=== PATIENT | male | born 1960 | race Caucasian/White ===

== ENCOUNTER 2018-02-15 22:16 | Inpatient (IN) | payer OTHER ==
[2018-02-15] MEDS ORDERED: FUROSEMIDE 40 MG/4 ML INJECTABLE VIAL IVPUSH ONE (22:30)
[2018-02-15] MEDS ORDERED: NITROGLYCERIN 50MG/D5W 250ML 50 MG/250 ML ML IVPB SCH (22:30)
--- NOTE | 2018-02-15 22:30 | PDOC ---
Attending Attestation - Resident Resident Name: Sandy Medina - HPI HPI: 02/15/18 22:49 Pt presents to the ED complaining of the acute onset of shortness of breath. On arrival to the ED, patient was extremely diaphoretic, hypertensive and hypoxic. Improving on bipap. History of cardiac disease but no history of CHF. Also has history of COPD. - Physicial Exam PE: 02/15/18 22:52 Agree with resident exam. PAtient is in respiratory distress, speaking in one to two word sentences. Diaphoretic. + crackles bilaterally. Trace edema to mid calf. - Critical Care Time Total Critical Care Time: 30 Critical Care Statement: The care of this patient involved high complexity decision making to prevent further life threatening deterioration of the patient 's condition and/or to evaluate & treat vital organ system(s) failure or risk of failure. - Medical Decision Making 02/15/18 22:53 Pt presents to the ED in acute respiratory distress, with hypertension and tachycardia. CXR shows evidence of pulmonary edema. Will treat with bipap, IV lasix and nitroglycerin and admit to medicine for CHF exacerbation.
[2018-02-15] MEDS ORDERED: NITROGLYCERIN 25MG/D5W 250ML 25 MG/250 ML ML IVPB ONE (22:31)
[2018-02-15 22:32] LABS: BASO % 0.8 % (0-2.0); EOS % 0.5 % (0-4.5); HEMATOCRIT 48.8 % (35.4-49); HEMOGLOBIN 16.6 GM/dL (11.7-16.9); LYMPH % 26.4 % (8-40); MCH 31.3 pg (25.7-33.7); MEAN CELL VOLUME 92.3 fl (80-96); MEAN PLT VOLUME 8.4 fl (7.5-11.1); MONO % 9.9 % (3.8-10.2); NEUT % 62.4 % (42.8-82.8); PLATELET COUNT 263 K/MM3 (134-434); RBC 5.29 M/mm3 (4.00-5.60); RDW 14.5 % (11.9-15.9); WHITE BLOOD COUNT 17.3 K/mm3 (4.0-10.0)
[2018-02-15 22:36] LABS: VENOUS PC02 42.3 mmHg (38-52); VENOUS PO2 87.5 mmHg (28-48)
--- NOTE | 2018-02-15 22:37 | PDOC ---
History of Present Illness - General Chief Complaint: Shortness of Breath Stated Complaint: SHORTNESS OF BREATH Time Seen by Provider: 02/15/18 22:20 History Source: Patient Exam Limitations: No Limitations, Clinical Condition - History of Present Illness Initial Comments: 02/15/18 22:30 This is a 57 YOM with h/o NE with cardiac arrest now s/p cardiac stent, CAD, HTN , former smoker, and current diagnosis of bronchitis (on albuterol rescue inhaler) who p/w acute respiratory distress in the setting of worsening SOB and cough all day since he awakened this morning. The patient himself is unable to provide his own medical history or symptoms at this time as limited by his clinical condition. His family states he has never had SOB like this before in his life to their knowledge. It worsened when he walked from the parking lot to the waiting room. After his SOB is better controlled, the patient states that he has left lower medial chest discomfort on deep breathing (patient points). Past History - Past Medical History Allergies/Adverse Reactions: Allergies Allergy/AdvReac Type Severity Reaction Status Date / Time No Known Allergies Allergy Verified 05/21/13 22:10 Home Medications: Ambulatory Orders Folic Acid 1 mg PO DAILY 04/24/11 Nebivolol [Bystolic -] 20 mg PO DAILY 04/24/11 Thiamine HCl 100 mg PO DAILY 04/24/11 Albuterol 0.083% Nebulizer Veronica [Ventolin 0.083% Nebulizer Soln -] 1 neb NEB Q4H 04/05/13 Aspirin [ASA -] 81 mg PO DAILY 04/05/13 Atorvastatin Ca [Lipitor] 80 mg PO HS 04/05/13 Beclomethasone Dipropionate [Qvar ] 80 mcg IH BID 04/05/13 Clopidogrel Bisulfate [Plavix -] 10 mg PO DAILY 05/22/13 Cardiac Disorders: Yes (STENT) COPD: No HTN: Yes Hypercholesterolemia: Yes - Surgical History Cardiac Surgery: Yes (STENT) - Immunization History Immunization Up to Date: Yes - Suicide/Smoking/Psychosocial Hx Smoking Status: No Smoking History: Never smoked Have you smoked in the past 12 months: No Number of Cigarettes Smoked Daily: 0 If you are a former smoker, when did you quit?: years ago Information on smoking cessation initiated: No Hx Alcohol Use: Yes Drug/Substance Use Hx: No Substance Use Type: None Hx Substance Use Treatment: No Review of Systems - Review of Systems Able to Perform ROS?: No (clinical condition) *Physical Exam - Vital Signs Last Vital Signs Temp Pulse Resp BP Pulse Ox 137 H 32 H 177/122 H 88 L 02/15/18 22:18 02/15/18 22:18 02/15/18 22:18 02/15/18 22:18 02/15/18 23:03 GENERAL: moderate distress, moderate-severe respiratory distress, diaphoretic, unable to speak even one-word sentences, on 100% O2 via non-rebreather on my initial evaluation, family at bedside HEENT: PERRLA, EOMI, moist mucous membranes NECK/BACK: no midline ttp, no spinal stepoff or deformity, no hematoma, full ROM , neck supple CARDIOVASCULAR: regular rate/rhythm, tachycardic, normal S1S2, no MGR, strong peripheral pulses, capillary refill <2 seconds, extremities wwp, no edema LUNGS/RESPIRATORY: moderate-severe respiratory distress, bilateral very coarse breath sounds, coughing clear/yellow production frequently, tripoding, accessory muscle use, +retractions GI/ABDOMEN: protuberant, symmetric [id number], normoactive BS, soft, no ttp, no midline pulsatile masses : no CVA tenderness EXTREMITIES: no muscle atrophy, no acute deformity, no edema SKIN: extremities are lukewarm, dry, no pallor, no jaundice, no rash, no bruising, no skin breakdown, no cuts, no lesions NEUROLOGICAL: GCS 15, CN II-XII grossly intact, 5/5 strength proximally and distally, no facial droop Heart Score/ECG Review - History History: Moderately suspicious - Electrocardiogram EKG: Non specific repolarization disturbance - Age Age: 45-65 - Risk Factors Risk Factors Heart Score: Yes Hx Hypertension, Yes Smoking History, Yes Hx Obesity Based on the list above the patient has:: >/=3 risk factors or Hx atherosclerotic disease #1 02/15/18 22:31 Sinus tachycardia, rate 118, three PVCs, normal axis, grossly prolonged QT, narrow complex QRS, biatrial enlargement, no ischemic ST-T changes ED Treatment Course - LABORATORY CBC & Chemistry Diagram: 02/15/18 22:22 02/15/18 22:22 - RADIOLOGY Radiology Studies Ordered: Category Date Time Status CHEST X-RAY PORTABLE* [RAD] Stat Radiology 02/15/18 22:20 Ordered Medical Decision Making - Medical Decision Making 57 YOM with h/o recent bronchitis on rescue inhaler, who p/w SOB and cough all day today. Initial Vital Signs Pulse Resp BP Pulse Ox 137 H 32 H 177/122 H 88 L 02/15/18 22:18 02/15/18 22:18 02/15/18 22:18 02/15/18 22:18 Exam: As noted in Physical Exam section. DDX IBNLT: CHF exacerbation, pulmonary edema, COPD, asthma, other lung disease, PNA/bronchitis, anemia, ACS, pericarditis, tamponade, AD, PE, PTX, allergic reaction, malignancy (e.g. causing pericardial effusion or vascular shunt), other infection, pulmonary HTN, etc. W/U ordered: CBCD CMP Mg Phos Troponin CK CKMB BNP Blood Gas UA UCx EKG CXR TX ordered: NTG ggt, Lasix IV push, O2, BiPAP, Pt positioned with head of bed up Important to check Phos as severe hypophos can cause decr contractility and ventilation and rhabdo. 02/15/18 22:52 Patient coughed up fluid into his BiPAP mask, dirty now, RT coming to replace mask. At this time repeat BP 150s/90s, went up to 20 mcg/min on nitro drip. EKG: Reviewed; results as noted in ECG Review section. CXR: Pulmonary vascular congestion Laboratory Tests 02/15/18 02/15/18 02/15/18 22:14 22:22 22:22 WBC 17.3 H RBC 5.29 Hgb 16.6 Hct 48.8 D MCV 92.3 MCH 31.3 D MCHC 34.0 RDW 14.5 D Plt Count 263 MPV 8.4 Absolute Neuts (auto) 10.8 H Neutrophils % 62.4 Lymphocytes % 26.4 D Monocytes % 9.9 Eosinophils % 0.5 Basophils % 0.8 Nucleated RBC % 0 PT with INR INR VBG pH POC VBG pCO2 POC VBG pO2 Mixed VBG HCO3 Sodium 140 Potassium 3.8 Chloride 104 Carbon Dioxide 19 L Anion Gap 17 H BUN 13 Creatinine 1.6 H Creat Clearance w eGFR 44.46 Random Glucose 176 H Calcium 8.5 Phosphorus Magnesium Total Bilirubin 1.6 H AST 77 H ALT 82 H Alkaline Phosphatase 102 Creatine Kinase Creatine Kinase Index CK-MB (CK-2) Troponin I B-Natriuretic Peptide Total Protein 7.7 Albumin 4.0 Blood Type AB POSITIVE Antibody Screen Negative 02/15/18 02/15/18 02/15/18 22:22 22:22 22:24 WBC RBC Hgb Hct MCV MCH MCHC RDW Plt Count MPV Absolute Neuts (auto) Neutrophils % Lymphocytes % Monocytes % Eosinophils % Basophils % Nucleated RBC % PT with INR 12.90 INR 1.09 VBG pH POC VBG pCO2 POC VBG pO2 Mixed VBG HCO3 Sodium Potassium Chloride Carbon Dioxide Anion Gap BUN Creatinine Creat Clearance w eGFR Random Glucose Calcium Phosphorus 6.0 H Magnesium 2.0 Total Bilirubin AST ALT Alkaline Phosphatase Creatine Kinase 290 Creatine Kinase Index 1.3 CK-MB (CK-2) 3.9 H Troponin I 0.23 H B-Natriuretic Peptide 1336.3 H Total Protein Albumin Blood Type Antibody Screen 02/15/18 02/15/18 22:24 22:34 WBC RBC Hgb Hct MCV MCH MCHC RDW Plt Count MPV Absolute Neuts (auto) Neutrophils % Lymphocytes % Monocytes % Eosinophils % Basophils % Nucleated RBC % PT with INR INR VBG pH 7.23 L* POC VBG pCO2 42.3 POC VBG pO2 87.5 H Mixed VBG HCO3 17.1 L Sodium Potassium Chloride Carbon Dioxide Anion Gap BUN Creatinine Creat Clearance w eGFR Random Glucose Calcium Phosphorus Magnesium Total Bilirubin AST ALT Alkaline Phosphatase Creatine Kinase Creatine Kinase Index CK-MB (CK-2) Troponin I B-Natriuretic Peptide Total Protein Albumin Blood Type AB POSITIVE Antibody Screen Negative 02/15/18 23:27 Patient much more comfortable, on BiPAP, speaking 3 word sentences. BP 122/86 on 20 mcg/min NTG ggt, HR 106, RR 20, 100% on 40% FiO2. Vital Signs Temperature Pulse Rate 11 L 02/15/18 22:35 Respiratory Rate 32 H 02/15/18 22:18 Blood Pressure 177/122 H 02/15/18 22:18 O2 Sat by Pulse Oximetry (%) 99 02/15/18 22:41 02/15/18 23:07 The Pt is unsafe for discharge at this time. They require further hospital observation, workup, and treatment. Pt needs IV meds 2/2 likely bowel edema as PO medications likely less effective. Microblog sent to [facility] for admission. Blank Decision to Admit order is placed per ED protocol. 02/15/18 23:57 I spoke with admitting team, patient going to IP Tele, will wean off NTG ggt before he goes up. Decision to Admit order corrected with Dr. Lucas's name. *DC/Admit/Observation/Transfer Diagnosis at time of Disposition: DAPHNE (acute kidney injury), Hyperbilirubinemia Pulmonary edema Qualifiers: Chronicity: acute Qualified Code(s): J81.0 - Acute pulmonary edema - Discharge Dispostion Condition at time of disposition: Guarded Decision to Admit order: Yes - Referrals - Patient Instructions - Post Discharge Activity
[2018-02-15 22:38] LABS: VENOUS PH 7.23 (7.32-7.42)
[2018-02-15] MEDS ORDERED: FUROSEMIDE 40 MG/4 ML INJECTABLE VIAL ONE (22:42)
[2018-02-15 22:49] LABS: INR 1.09 (0.83-1.09); PROTHROMBIN TIME (PATIENT) 12.9 SEC (9.7-13.0)
[2018-02-15 22:50] LABS: ALK PHOS 102 U/L (45-117); ANION GAP 17 MMOL/L (8-16); BILIRUBIN,TOTAL 1.6 mg/dL (0.2-1); BLOOD UREA NITROGEN 13 mg/dL (7-18); CALCIUM 8.5 mg/dL (8.5-10.1); CHLORIDE 104 mmol/L (98-107); CO2 19 mmol/L (21-32); CREATININE 1.6 mg/dL (0.55-1.3); GLUCOSE,RANDOM 176 mg/dL (74-106); N-TERMINAL BNP 1336.3 pg/ml (5-125); POTASSIUM 3.8 mmol/L (3.5-5.1); SGOT/AST 77 U/L (15-37); SGPT/ALT 82 U/L (13-61); SODIUM 140 mmol/L (136-145); TOT PROT 7.7 g/dl (6.4-8.2)
[2018-02-15] MEDS ORDERED: ASPIRIN 81 MG CHEWABLE TABLETS PO ONE (23:30)
--- NOTE | 2018-02-16 00:02 | PN ---
Teaching Attending Note Name of Resident: Jose Young ATTENDING PHYSICIAN STATEMENT I saw and evaluated the patient. I reviewed the resident's note and discussed the case with the resident. I agree with the resident's findings and plan as documented. SUBJECTIVE: Patient is a 57 year old man with history of MS with cardiac arrest now s/p cardiac stent, CAD, HTN, former smoker, and current diagnosis of bronchitis (on albuterol rescue inhaler) who presents with acute respiratory distress in the setting of worsening SOB and cough all day since he awakened this morning. The patient himself is unable to provide his own medical history or symptoms at this time as limited by his clinical condition. His family states he has never had SOB like this before in his life to their knowledge. It worsened when he walked from the parking lot to the waiting room. After his SOB is better controlled, the patient states that he has left lower medial chest discomfort on deep breathing. Has history of heavy smoking in the past, DELUCA, PND, snores a lot, orthopnea and symptoms of sleep apnea OBJECTIVE: Alert, obese and in distress on Bipap Vital Signs Period Temp Pulse Resp BP Sys/Shaw Pulse Ox Last 24 Hr 11-137 32 177/122 88-100 HEENT: No Jaundice, eye redness or discharge, PERRLA, EOMI. Normocephalic, atraumatic. External ears are normal and hearing is grossly intact. No nasal discharge. Neck: Supple, nontender. No palpable adenopathy or thyromegaly. No JVD Chest: Good effort. Clear to percussion. End expiratory wheezing. Heart: Regular. No S3, rub or murmur Abdomen: Not distended, soft, nontender and no HSM. No rebound or guarding. Normoactive bowel sounds. Ext: Peripheral pulses intact. Trace leg edema. Skin: Warm and dry. No petechiae, rash or ecchymosis. Neuro: Alert. Oriented x3. CN 2-12 grossly intact. Sensation grossly intact in all four extremities and DTR are symmetric. Current Medications Generic Name Dose Route Start Last Admin Trade Name Freq PRN Reason Stop Dose Admin Nitroglycerin/Dextrose 50 mg in 250 mls @ 3 mls/hr 02/15/18 22:30 02/15/18 22 :38 Nitroglycerin 50mg/D5w 250ml IVPB 10 mcg/min TITR NHI 3 mls/hr Administration 10 MCG/MIN Home Medications Medication Instructions Recorded Folic Acid 1 mg PO DAILY 04/24/11 Nebivolol [Bystolic -] 20 mg PO DAILY 04/24/11 Thiamine HCl 100 mg PO DAILY 04/24/11 Albuterol 0.083% Nebulizer Veronica 1 neb NEB Q4H 04/05/13 [Ventolin 0.083% Nebulizer Soln -] Aspirin [ASA -] 81 mg PO DAILY 04/05/13 Atorvastatin Ca [Lipitor] 80 mg PO HS 04/05/13 Beclomethasone Dipropionate [Qvar 80 mcg IH BID 04/05/13] Clopidogrel Bisulfate [Plavix -] 10 mg PO DAILY 05/22/13 Abnormal Lab Results 02/15/18 02/15/18 02/15/18 22:22 22:22 22:22 WBC 17.3 H Absolute Neuts (auto) 10.8 H VBG pH POC VBG pO2 Mixed VBG HCO3 Carbon Dioxide 19 L Anion Gap 17 H Creatinine 1.6 H Random Glucose 176 H Phosphorus 6.0 H Total Bilirubin 1.6 H AST 77 H ALT 82 H CK-MB (CK-2) Troponin I B-Natriuretic Peptide 1336.3 H 02/15/18 02/15/18 22:22 22:24 WBC Absolute Neuts (auto) VBG pH 7.23 L* POC VBG pO2 87.5 H Mixed VBG HCO3 17.1 L Carbon Dioxide Anion Gap Creatinine Random Glucose Phosphorus Total Bilirubin AST ALT CK-MB (CK-2) 3.9 H Troponin I 0.23 H B-Natriuretic Peptide ASSESSMENT AND PLAN: 1. Acute Respiratory Failure - Underlying cause is still unclear. Unable to get CTA to rule out PE due to impaired renal function. CXR shows cardiomegaly, increased interstitial markings and reduced LV function on ECHO from 04/25/2011. Failed to diurese with 40 mg of IV lasix and UA is not available. Hypertension has improved with IV nitroglycerin. Will give 80 mg IV lasix, monitor urine output, reduce salt intake, get ECHO and monitor weight daily. With stong history of bronchitis, will treat with solumedrol, duoneb and MgSO4. Will check d-dimer and get VQ scan. If his clinical course worsens, may treat empirically for PE pending confirmation. Elevated LFTs may be due to congestion or alcohol. Will get liver sonogram, hepatitis serology, HbA1c and trend LFTs. Outpatient sleep studies. Elevated troponin may signal demand ischemia. No acute changes of ischemia on EKG. Trend troponin and admit to telemetry to rule out ACS. Leukocytosis is unexplained. Atypical pneumonia? Send urine for legionella antigen and treat with IV rocephin and azithromycin. Consult ID 2. DAPHNE - Etiology unclear. Get UA, kidney sonogram and CPK. Will consult nephrology and avoid nephrotoxic agents such as NSAIDS, aminoglycosides, contrast dyes and certain Alternative medicine products. Treat with phosphate binder 3. Obesity - Will provide patient all the necessary assistance , counseling and positive reinforcement to facilitate weight loss. Consult utility manager. 4. Alcohol abuse - Implement [facility] alcohol withdrawal protocol, fall and aspiration precautions. Treat with thiamine and folic acid and monitor electrolytes (Ca,Mg,K,P). 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 5. DVT prophylaxis - Lovenox 40 mg SQ q 24 hours. 6. Advance directives - Full code
[2018-02-16] MEDS ORDERED: ASPIRIN 81 MG CHEWABLE TABLETS ONE (00:03)
[2018-02-16] MEDS ORDERED: FUROSEMIDE 40 MG/4 ML INJECTABLE VIAL IVPUSH ONE (00:41)
[2018-02-16] MEDS ORDERED: methylPREDNISolone NA SUCC 125 MG/2 ML VIAL IVPUSH ONE (00:52)
[2018-02-16 01:20] LABS: ARTERIAL BLOOD GAS pH 7.53 (7.35-7.45)
[2018-02-16 01:21] LABS: ARTERIAL BLOOD GAS PCO2 26.4 mmHg (35-45)
[2018-02-16] MEDS ORDERED: methylPREDNISolone NA SUCC 125 MG/2 ML VIAL ONE (01:21)
[2018-02-16 01:22] LABS: ARTERIAL BLD GAS O2 SATURATION 98.9 % (90-98.9); ARTERIAL BLOOD GAS BASE EXCESS 1.1 meq/l (-2-2)
[2018-02-16] MEDS ORDERED: FUROSEMIDE 40 MG/4 ML INJECTABLE VIAL ONE (01:22)
[2018-02-16 01:23] LABS: ALLENS TEST POSITIVE
[2018-02-16 01:41] LABS: VENOUS PC02 30.4 mmHg (38-52); VENOUS PH 7.49 (7.32-7.42)
[2018-02-16] MEDS ORDERED: MAGNESIUM SULF 50% (8.12 MEQ/2 ML-1 GM VIAL) IVPB ONE (01:45)
--- NOTE | 2018-02-16 01:45 | HP ---
CHIEF COMPLAINT: SOB, cough, DELUCA PCP: Isela HISTORY OF PRESENT ILLNESS: 57 yo male with PMH of [place] (cardiac arrest in 2011) s/p stent insertion, CAD, HTN , HLD, admitted for acute respiratory distress that began today in addition to complaint of productive cough for a few months. He states that the cough has been present for at least 6 months and is productive of a lot of mostly clear sputum. 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 He states he is unable to lie flat at night and often awakens searching for air. He does state that he follows up with his cyber legal advisor and has had an echo that was normal in the past. Of note he is also endorsing medial to left sided sharp pain just above his xiphoid region which is much worse with deep inspiration. He denies any fevers, chills, abdominal pain, urinary symptoms. ER course was notable for: (1) b.p. 177/122, nitro drip initiated with good effect (2) bilevel ventilation initiated, RR and saturation improved (3) Lasix 40 mg IV Recent Travel: None PAST MEDICAL HISTORY: [place] (cardiac arrest in 2011) s/p stent insertion, CAD, HTN, HLD PAST SURGICAL HISTORY: Cardiac stent insertion Social History: Smoking: used to smoke up to 2 ppd for many years, quit eleven years ago Alcohol: up to a 12 pack of beer 3-4 times per week. Drugs: Denies Family History: Allergies No Known Allergies Allergy (Verified 05/21/13 22:10) HOME MEDICATIONS: Home Medications Medication Instructions Recorded Folic Acid 1 mg PO DAILY 04/24/11 Nebivolol [Bystolic -] 20 mg PO DAILY 04/24/11 Thiamine HCl 100 mg PO DAILY 04/24/11 Albuterol 0.083% Nebulizer Veronica 1 neb NEB Q4H 04/05/13 [Ventolin 0.083% Nebulizer Soln -] Aspirin [ASA -] 81 mg PO DAILY 04/05/13 Atorvastatin Ca [Lipitor] 80 mg PO HS 04/05/13 Beclomethasone Dipropionate [Qvar 80 mcg IH BID 04/05/13 1040] Clopidogrel Bisulfate [Plavix -] 10 mg PO DAILY 05/22/13 REVIEW OF SYSTEMS CONSTITUTIONAL: diaphoresis Absent: fever, chills, , generalized weakness, malaise, loss of appetite, weight change HEENT: Absent: rhinorrhea, nasal congestion, throat pain, throat swelling, difficulty swallowing, mouth swelling, ear pain, eye pain, visual changes CARDIOVASCULAR: chest pain, peripheral edema Absent: , syncope, palpitations, irregular heart rate, lightheadedness RESPIRATORY: cough, shortness of breath, dyspnea with exertion, orthopnea Absent: , wheezing, stridor, hemoptysis GASTROINTESTINAL: nausea Absent: abdominal pain, abdominal distension, , vomiting, diarrhea, constipation , melena, hematochezia GENITOURINARY: Absent: dysuria, frequency, urgency, hesitancy, hematuria, flank pain, genital pain MUSCULOSKELETAL: Absent: myalgia, arthralgia, joint swelling, back pain, neck pain SKIN: Absent: rash, itching, pallor HEMATOLOGIC/IMMUNOLOGIC: Absent: easy bleeding, easy bruising, lymphadenopathy, frequent infections ENDOCRINE: Absent: unexplained weight gain, unexplained weight loss, heat intolerance, cold intolerance NEUROLOGIC: Absent: headache, focal weakness or paresthesias, dizziness, unsteady gait, seizure, mental status changes, bladder or bowel incontinence PSYCHIATRIC: Absent: anxiety, depression, suicidal or homicidal ideation, hallucinations. PHYSICAL EXAMINATION Vital Signs - 24 hr 02/15/18 02/15/18 02/15/18 22:18 22:35 22:41 Pulse Rate 137 H 11 L Pulse Rate [ Left Apical] Respiratory 32 H Rate Blood Pressure 177/122 H Blood Pressure [Left] O2 Sat by Pulse 88 L 100 99 Oximetry (%) 02/15/18 02/16/18 22:58 00:38 Pulse Rate 112 H Pulse Rate [ 112 H 102 H Left Apical] Respiratory 21 H 22 H Rate Blood Pressure Blood Pressure 153/95 136/93 [Left] O2 Sat by Pulse 100 Oximetry (%) GENERAL: A&O, mild acute respiratory distress HEAD: Normocephalic, atraumatic. EYES: PERRL, no scleral icterus EARS, NOSE, THROAT: oropharynx clear without exudates. Moist mucous membranes. NECK: supple without lymphadenopathy LUNGS: bilevel ventilation, faint crackles at the bases, mild expiratory wheezes noted left base HEART: Regular rate and rhythm, normal S1 and S2 without murmur ABDOMEN: Soft, nontender to palpation, normoactive bowel sounds MUSCULOSKELETAL: No bony deformities or tenderness. EXTREMITIES: 2+ pulses, warm, well-perfused. Trace distal LE edema. NEUROLOGICAL: Cranial nerves II-XII grossly intact. Normal speech. PSYCHIATRIC: Cooperative. Good eye contact. Appropriate mood and affect. SKIN: Warm, dry, no rashes or lesions noted Laboratory Results - last 24 hr 02/15/18 02/15/18 02/15/18 22:14 22:22 22:22 WBC 17.3 H RBC 5.29 Hgb 16.6 Hct 48.8 D MCV 92.3 MCH 31.3 D MCHC 34.0 RDW 14.5 D Plt Count 263 MPV 8.4 Absolute Neuts (auto) 10.8 H Neutrophils % 62.4 Lymphocytes % 26.4 D Monocytes % 9.9 Eosinophils % 0.5 Basophils % 0.8 Nucleated RBC % 0 PT with INR INR VBG pH POC VBG pCO2 POC VBG pO2 Mixed VBG HCO3 Sodium 140 Potassium 3.8 Chloride 104 Carbon Dioxide 19 L Anion Gap 17 H BUN 13 Creatinine 1.6 H Creat Clearance w eGFR 44.46 Random Glucose 176 H Calcium 8.5 Phosphorus Magnesium Total Bilirubin 1.6 H AST 77 H ALT 82 H Alkaline Phosphatase 102 Creatine Kinase Creatine Kinase Index CK-MB (CK-2) Troponin I B-Natriuretic Peptide Total Protein 7.7 Albumin 4.0 Blood Type AB POSITIVE Antibody Screen Negative 02/15/18 02/15/18 02/15/18 22:22 22:22 22:24 WBC RBC Hgb Hct MCV MCH MCHC RDW Plt Count MPV Absolute Neuts (auto) Neutrophils % Lymphocytes % Monocytes % Eosinophils % Basophils % Nucleated RBC % PT with INR 12.90 INR 1.09 VBG pH POC VBG pCO2 POC VBG pO2 Mixed VBG HCO3 Sodium Potassium Chloride Carbon Dioxide Anion Gap BUN Creatinine Creat Clearance w eGFR Random Glucose Calcium Phosphorus 6.0 H Magnesium 2.0 Total Bilirubin AST ALT Alkaline Phosphatase Creatine Kinase 290 Creatine Kinase Index 1.3 CK-MB (CK-2) 3.9 H Troponin I 0.23 H B-Natriuretic Peptide 1336.3 H Total Protein Albumin Blood Type Antibody Screen 02/15/18 02/15/18 22:24 22:34 WBC RBC Hgb Hct MCV MCH MCHC RDW Plt Count MPV Absolute Neuts (auto) Neutrophils % Lymphocytes % Monocytes % Eosinophils % Basophils % Nucleated RBC % PT with INR INR VBG pH 7.23 L* POC VBG pCO2 42.3 POC VBG pO2 87.5 H Mixed VBG HCO3 17.1 L Sodium Potassium Chloride Carbon Dioxide Anion Gap BUN Creatinine Creat Clearance w eGFR Random Glucose Calcium Phosphorus Magnesium Total Bilirubin AST ALT Alkaline Phosphatase Creatine Kinase Creatine Kinase Index CK-MB (CK-2) Troponin I B-Natriuretic Peptide Total Protein Albumin Blood Type AB POSITIVE Antibody Screen Negative ASSESSMENT/PLAN: 57 yo male with PMH of [place] (cardiac arrest in 2011) s/p stent insertion, CAD, HTN , HLD, admitted for acute respiratory distress that began today in addition to complaint of productive cough for a few months. Acute Hypoxic Respiratory Failure -Acute onset of severe SOB requiring presentation to the ED, pt states chronic DELUCA and productive cough but never this severe or persistent -Afebrile, WBC 17.3, consider atypical/aspiration pneumonia, vs PE with clinical picture of rapid onset and pleuritic inspiratory chest pain, vs CHF with fluid overload -With alcohol use, aspiration cannot yet be ruled out -Urine legionella pending -Consider Rocephin/Azithromycin -BNP noted 1336 -CXR noted with mild blunting of b/l angles with possible b/l effusions, though Auscultation and exam not consistent with severe fluid overload -Lasix 80 mg IV (pt will require higher dose lasix with decreased renal function ) -Is&Os, Daily weights -Telemetry -Echo -D-dimer pending, consider pulmonology consult for possible V/Q scan if not improving overnight or D-dimer elevation -Bilevel ventilation for now -DuoNebs Q4 IH -SoluMedrol 125 mg IV, followed by 60 mg IV Q6 -IV Mag -ABG pending -Cardiology consulted, will see pt in AM. -Pt on plavix at home, add full dose ASA -Troponin 0.23 noted, will repeat and trend as necessary HTN Urgency -177/122 -No complaints or signs of end organ damage -Nitro drip initiated in ED. B.p improved to 136/93 -d/c Nitro drip -Continue home meds if b.p. stable in AM - DAPHNE vs. CKD -Likely CKD, Creatinine chronically elevated -UA pending Alcohol Abuse -Endorses 12 beers 3-4 times per week -Not currently appearing in acute withdrawals -Monitor CIWA and initiate librium/ativan protocol as needed DVT Prophylaxis -Heparin 5000 units SQ TID FEN -Fluids: none -Electrolytes: Phos, 6.0, repeat, BMP in AM -Nutrition: NPO Disposition Telemetry Visit type - Emergency Visit Emergency Visit: Yes Care time: The patient presented to the Emergency Department on the above date and was hospitalized for further evaluation of their emergent condition. - New Patient This patient is new to me today: Yes Date on this admission: 02/16/18 - Critical Care Critical Care patient: Yes Total Critical Care Time (in minutes): 65 Critical Care Statement: The care of this patient involved high complexity decision making to prevent further life threatening deterioration of the patient 's condition and/or to evaluate & treat vital organ system(s) failure or risk of failure.
[2018-02-16] MEDS ORDERED: MAGNESIUM 1GM/D5W - 1 GM/100 ML IVPB IVPB ONE (02:19)
[2018-02-16] MEDS ORDERED: METOPROLOL TARTRATE 5 MG/5 ML VIAL IVPUSH ONE (05:17)
[2018-02-16] MEDS ORDERED: CEFTRIAXONE 1 GM in DEXTROSE 5%-WATER - 50 ML IVPB ONE (05:30)
[2018-02-16 05:57] VITALS: BMI 35.0
[2018-02-16] MEDS ORDERED: HEPARIN NA (PORCINE) 5,000 UNITS/ML 1ML VIAL SQ SCH (06:00)
[2018-02-16] MEDS ORDERED: cefTRIAXone SODIUM 1 GM VIAL ONE (06:03)
[2018-02-16] MEDS ORDERED: DEXTROSE 5%-WATER - 50 ML IVPB ONE (06:04)
[2018-02-16] MEDS ORDERED: HEPARIN NA (PORCINE) 5,000 UNITS/ML 1ML VIAL IVPUSH PRN ×2 (08:35)
--- NOTE | 2018-02-16 08:47 | CON.CARD ---
Cardiology Consult (text) - Consultation Consultation Note: Consult Dictated IMP: Acute on chronic Diastolic CHF CAD s/p inferior [place] 2011, PCI Chronic uncontrolled HTN Hypertensive urgency Now with acute on chronic diastolic CHF possibly precipitated by uncontrolled HTN, but arrhythmia and ischemia need to be ruled out. REC: 1. IV Lasix 2. Hold SOFI due to elevated creatinine: start Imdur and Hydralazine for afterload reduction and BP control 3. Daily weights 4. Echo 5. Tele 6. Will need ischemic eval when euvolemic 7. Elevated D dimer, nonspecific. Cannot perform CTA now as creatinine is elevated and volume overload. Will start UFH gtts LE venous duplex CTA or V/Q scan when possible.
--- NOTE | 2018-02-16 08:53 | PN ---
Physical Exam: SUBJECTIVE: Patient seen and examined. Pt. endorses improved breathing, chest pain and abdominal pain. Pt. states that at baseline can walk up 3 steps before feeling short of breath and can walk half a block on flat surface before feeling short of breath. Pt. endorses 2 pillow orthopnea. OBJECTIVE: Vital Signs Period Temp Pulse Resp BP Sys/Shaw Pulse Ox Last 24 Hr 98.4 F 11-137 20-32 136-177/93-122 88-100 GENERAL: The patient is awake, alert, and fully oriented, in mild respiratory distress. HEAD: Normal with no signs of trauma. EYES: Sclera anicteric, conjunctiva clear. No ptosis. ENT: Ears normal, nares patent, moist mucous membranes, JVD+. LUNGS: Breath sounds equal, clear to auscultation bilaterally, no wheezes, no crackles, no accessory muscle use. HEART: Tachycardic, regular rate and rhythm, S1, S2 without murmur ABDOMEN: Soft, nontender, nondistended, normoactive bowel sounds, no guarding, no rebound, no hepatosplenomegaly, no masses. EXTREMITIES: 2+ dorsal pedal pulses, warm, no calf tenderness, well-perfused, trace pitting edema b/l. NEUROLOGICAL: Cranial nerves II through XII grossly intact. Normal speech, gait not observed. PSYCH: Normal mood, normal affect. SKIN: Warm, dry, normal turgor Laboratory Results - last 24 hr 02/15/18 02/15/18 02/15/18 22:14 22:22 22:22 WBC 17.3 H RBC 5.29 Hgb 16.6 Hct 48.8 D MCV 92.3 MCH 31.3 D MCHC 34.0 RDW 14.5 D Plt Count 263 MPV 8.4 Absolute Neuts (auto) 10.8 H Neutrophils % 62.4 Lymphocytes % 26.4 D Monocytes % 9.9 Eosinophils % 0.5 Basophils % 0.8 Nucleated RBC % 0 PT with INR INR D-Dimer Anticoagulation Therapy Puncture Site ABG pH ABG pCO2 at Pt Temp ABG pO2 at Pt Temp ABG HCO3 ABG O2 Sat (Measured) ABG O2 Content ABG Base Excess Aleksey Test VBG pH POC VBG pCO2 POC VBG pO2 Mixed VBG HCO3 O2 Delivery Device Oxygen Flow Rate Vent Mode Vent Rate Mechanical Rate Pressure Support Vent Sodium 140 Potassium 3.8 Chloride 104 Carbon Dioxide 19 L Anion Gap 17 H BUN 13 Creatinine 1.6 H Creat Clearance w eGFR 44.46 Random Glucose 176 H Calcium 8.5 Phosphorus Magnesium Total Bilirubin 1.6 H AST 77 H ALT 82 H Alkaline Phosphatase 102 Creatine Kinase Creatine Kinase Index CK-MB (CK-2) Troponin I B-Natriuretic Peptide Total Protein 7.7 Albumin 4.0 Blood Type AB POSITIVE Antibody Screen Negative 02/15/18 02/15/18 02/15/18 22:22 22:22 22:24 WBC RBC Hgb Hct MCV MCH MCHC RDW Plt Count MPV Absolute Neuts (auto) Neutrophils % Lymphocytes % Monocytes % Eosinophils % Basophils % Nucleated RBC % PT with INR 12.90 INR 1.09 D-Dimer Anticoagulation Therapy Puncture Site ABG pH ABG pCO2 at Pt Temp ABG pO2 at Pt Temp ABG HCO3 ABG O2 Sat (Measured) ABG O2 Content ABG Base Excess Aleksey Test VBG pH POC VBG pCO2 POC VBG pO2 Mixed VBG HCO3 O2 Delivery Device Oxygen Flow Rate Vent Mode Vent Rate Mechanical Rate Pressure Support Vent Sodium Potassium Chloride Carbon Dioxide Anion Gap BUN Creatinine Creat Clearance w eGFR Random Glucose Calcium Phosphorus 6.0 H Magnesium 2.0 Total Bilirubin AST ALT Alkaline Phosphatase Creatine Kinase 290 Creatine Kinase Index 1.3 CK-MB (CK-2) 3.9 H Troponin I 0.23 H B-Natriuretic Peptide 1336.3 H Total Protein Albumin Blood Type Antibody Screen 02/15/18 02/15/18 02/16/18 22:24 22:34 00:46 WBC RBC Hgb Hct MCV MCH MCHC RDW Plt Count MPV Absolute Neuts (auto) Neutrophils % Lymphocytes % Monocytes % Eosinophils % Basophils % Nucleated RBC % PT with INR INR D-Dimer Anticoagulation Therapy No Result Required. Puncture Site Right radial ABG pH 7.53 H ABG pCO2 at Pt Temp 26.4 L D ABG pO2 at Pt Temp 145.0 H D ABG HCO3 22.1 ABG O2 Sat (Measured) 98.9 ABG O2 Content 20.3 ABG Base Excess 1.1 Aleksey Test Positive VBG pH 7.23 L* POC VBG pCO2 42.3 POC VBG pO2 87.5 H Mixed VBG HCO3 17.1 L O2 Delivery Device Bipap Oxygen Flow Rate 100 Vent Mode No Result Required. Vent Rate 12 Mechanical Rate No Result Required. Pressure Support Vent 14/6 Sodium Potassium Chloride Carbon Dioxide Anion Gap BUN Creatinine Creat Clearance w eGFR Random Glucose Calcium Phosphorus Magnesium Total Bilirubin AST ALT Alkaline Phosphatase Creatine Kinase Creatine Kinase Index CK-MB (CK-2) Troponin I B-Natriuretic Peptide Total Protein Albumin Blood Type AB POSITIVE Antibody Screen Negative 02/16/18 02/16/18 02/16/18 01:20 01:36 01:36 WBC RBC Hgb Hct MCV MCH MCHC RDW Plt Count MPV Absolute Neuts (auto) Neutrophils % Lymphocytes % Monocytes % Eosinophils % Basophils % Nucleated RBC % PT with INR INR D-Dimer 1760 H Anticoagulation Therapy Puncture Site ABG pH ABG pCO2 at Pt Temp ABG pO2 at Pt Temp ABG HCO3 ABG O2 Sat (Measured) ABG O2 Content ABG Base Excess Aleksey Test VBG pH 7.49 H D POC VBG pCO2 30.4 L D POC VBG pO2 115.0 H D Mixed VBG HCO3 22.8 O2 Delivery Device Oxygen Flow Rate Vent Mode Vent Rate Mechanical Rate Pressure Support Vent Sodium Potassium Chloride Carbon Dioxide Anion Gap BUN Creatinine Creat Clearance w eGFR Random Glucose Calcium Phosphorus Magnesium Total Bilirubin AST ALT Alkaline Phosphatase Creatine Kinase Creatine Kinase Index CK-MB (CK-2) Troponin I 0.46 H B-Natriuretic Peptide Total Protein Albumin Blood Type Antibody Screen 02/16/18 06:20 WBC RBC Hgb Hct MCV MCH MCHC RDW Plt Count MPV Absolute Neuts (auto) Neutrophils % Lymphocytes % Monocytes % Eosinophils % Basophils % Nucleated RBC % PT with INR INR D-Dimer Anticoagulation Therapy Puncture Site ABG pH ABG pCO2 at Pt Temp ABG pO2 at Pt Temp ABG HCO3 ABG O2 Sat (Measured) ABG O2 Content ABG Base Excess Aleksey Test VBG pH POC VBG pCO2 POC VBG pO2 Mixed VBG HCO3 O2 Delivery Device Oxygen Flow Rate Vent Mode Vent Rate Mechanical Rate Pressure Support Vent Sodium Potassium Chloride Carbon Dioxide Anion Gap BUN Creatinine Creat Clearance w eGFR Random Glucose Calcium Phosphorus Magnesium Total Bilirubin AST ALT Alkaline Phosphatase Creatine Kinase Creatine Kinase Index CK-MB (CK-2) Troponin I 0.41 H B-Natriuretic Peptide Total Protein Albumin Blood Type Antibody Screen Active Medications Current Medications Aspirin (Ecotrin -) 325 mg PO DAILY [facility] Last Admin: 02/16/18 09:41 Dose: 325 mg Atorvastatin Calcium (Lipitor -) 40 mg PO HS [facility] Clopidogrel Bisulfate (Plavix -) 75 mg PO DAILY [facility] Last Admin: 02/16/18 09:41 Dose: 75 mg Furosemide (Lasix Injection -) 40 mg IVPUSH BID@0600,1400 [facility] Heparin Sodium (Porcine) (Heparin -) 1,000 unit IVPUSH PRN PRN PRN Reason: Heparin Heparin Sodium (Porcine) (Heparin -) 5,000 unit IVPUSH PRN PRN PRN Reason: Heparin Hydralazine HCl (Apresoline -) 10 mg PO TID [facility] Last Admin: 02/16/18 13:04 Dose: 10 mg Heparin Sodium (Porcine) 25, (000 unit/ Sodium Chloride) 500 mls @ 20 mls/hr IV TITR [facility]; Protocol Last Admin: 02/16/18 13:05 Dose: 1,000 unit/hr, 20 mls/hr Isosorbide Mononitrate (Imdur -) 30 mg PO DAILY [facility] Last Admin: 02/16/18 09:41 Dose: 30 mg Methylprednisolone Sodium Succinate (Solu-Medrol -) 60 mg IVPUSH Q8H-IV [facility] Last Admin: 02/16/18 09:49 Dose: 60 mg Metoprolol Tartrate (Lopressor -) 50 mg PO DAILY [facility] Last Admin: 02/16/18 09:41 Dose: 50 mg Pantoprazole Sodium (Protonix -) 40 mg PO DAILY [facility] Last Admin: 02/16/18 09:41 Dose: 40 mg Home Medications Medication Instructions Recorded Amlodipine Besylate 10 mg PO DAILY 02/16/18 Atorvastatin Ca [Lipitor] 40 mg PO HS 02/16/18 Clopidogrel Bisulfate [Clopidogrel] 75 mg PO DAILY 02/16/18 Fluticasone Propionate [Flonase 50 mcg IH DAILY 02/16/18 Allergy Relief] Metoprolol Tartrate [Lopressor] 50 mg PO BID 02/16/18 Omeprazole 40 mg PO DAILY 02/16/18 ASSESSMENT/PLAN: 57 yo male with PMH of [place] (cardiac arrest in 2011) s/p stent insertion, CAD, HTN , HLD, admitted for acute respiratory distress that began today in addition to complaint of productive cough for a few months. Acute Hypoxic Respiratory Failure 2/2 CHF w/ volume overload Acute onset of severe SOB requiring presentation to the ED, pt states chronic DELUCA and productive cough but never this severe or persistent Urine legionella pending D/C Azithromycin given prolonged QTc: 538 BNP noted 1336 CXR noted with mild blunting of b/l angles with possible b/l effusions Decreased Lasix to 40 mg IV BID Is&Os, Daily weights Telemetry Echo: shows EFL 30-35%, LV Fxn. mod-severe reduced. D-dimer: 1700 c/w supplemental O2 as needed, Bipap on standby currently, wouls benefit from night time use as Pt. complains of snoring at night and gasping for air while sleeping. DuoNebs Q4 IH Given SoluMedrol 125 mg IV, c/w by 60 mg IV Q8H Cardiology consult (Dr. Phillips) appreciated. Pt. on Plavix at home, c/w full dose ASA Troponin peaked at 0.46 HTN Urgency-resolved Hold SOFI in light of DAPHNE, will start Imdur and Hydralazine No complaints or signs of end organ damage Nitro drip initiated in ED. BP improved to 136/93 d/c Nitro drip Initial BP: 177/122 DAPHNE vs. CKD Likely CKD, Creatinine chronically elevated 2/2 to volume overload c/w diuresing avoid Nephrotoxic agents Alcohol Abuse-stable CIWA: 0 Endorses 12 beers 3-4 times per week Not currently appearing in acute withdrawals Monitor CIWA and initiate librium/ativan protocol as needed DVT Prophylaxis -Heparin 5000 units SQ TID FEN -Fluids: none -Electrolytes: monitor and replete as needed -Nutrition: Sodium restricted diet Disposition Telemetry Visit type - Emergency Visit Emergency Visit: Yes ED Registration Date: 02/15/18 Care time: The patient presented to the Emergency Department on the above date and was hospitalized for further evaluation of their emergent condition. - New Patient This patient is new to me today: Yes Date on this admission: 02/16/18 - Critical Care Critical Care patient: No - Discharge Referral Referred to [facility] Med [facility] No
[2018-02-16] MEDS: PANTOPRAZOLE 40 MG TABLET (FP) PO SCH (09:41)
[2018-02-16] MEDS: CLOPIDOGREL BISULFATE 75 MG TABLET (FP) PO SCH (09:41)
[2018-02-16] MEDS: ISOSORBIDE MONONITRATE 30 MG TAB.SR.24H (FP) PO SCH (09:41)
[2018-02-16] MEDS: methylPREDNISolone NA SUCC 125 MG/2 ML VIAL IVPUSH SCH ×2 (09:49→17:48)
[2018-02-16] MEDS ORDERED: FUROSEMIDE 40 MG/4 ML INJECTABLE VIAL IVPUSH SCH (10:00)
[2018-02-16] MEDS ORDERED: AZITHROMYCIN IVPB 500 MG/250 ML BAG IVPB SCH (10:00)
[2018-02-16] MEDS ORDERED: METOPROLOL TARTRATE 50 MG TABLET (FP) PO SCH (10:00)
[2018-02-16] MEDS ORDERED: methylPREDNISolone NA SUCC 125 MG/2 ML VIAL IVPUSH SCH (10:00)
[2018-02-16] MEDS ORDERED: ASPIRIN 325 MG ENTERIC COATED TABLET (FP) PO SCH (10:00)
--- NOTE | 2018-02-16 10:54 | EKG ---
Test Reason : Blood Pressure : / mmHG Vent. Rate : 092 BPM Atrial Rate : 092 BPM P-R Int : 168 ms QRS Dur : 102 ms QT Int : 374 ms P-R-T Axes : 052 049 064 degrees QTc Int : 462 ms SINUS RHYTHM WITH OCCASIONAL PREMATURE VENTRICULAR COMPLEXES POSSIBLE LEFT ATRIAL ENLARGEMENT NONSPECIFIC ST AND T WAVE ABNORMALITY ABNORMAL ECG WHEN COMPARED WITH ECG OF 15-FEB-2018 22:31, VENT. RATE HAS DECREASED Confirmed by IVONNE SHEPPARD, CASIE ([id number]) on 02/16/2018 10:53:56 AM Referred By: Confirmed By:CASIE CORONADO MD
--- NOTE | 2018-02-16 10:55 | CONS ---
DATE OF CONSULTATION: 02/16/2018 CARDIOLOGY CONSULTATION REQUESTED BY: Keya Medina MD REASON FOR CONSULTATION: CHF. Patient is a 57-year-old male with a past medical history of chronic hypertension, coronary artery disease status post inferior [place] in 2011 with PCI who presents to the ER with approximately 2 weeks of progressive dyspnea on exertion, PND, and orthopnea symptoms. He has also had a dry cough which has been largely nonproductive. He denies fevers or chills. Yesterday he also had an episode of substernal chest pressure associated with shortness of breath prompting him to come to the ER. He denies palpations or syncope. He denies prolonged air travel or car travel. PAST MEDICAL HISTORY: His past medical history includes hypertension, coronary artery disease, hyperlipidemia, and diastolic CHF. He had an GA in 2011 with PCI. ALLERGIES: He has no known drug allergies. CURRENT MEDICATIONS: His current medications include aspirin 325 p.o. daily, atorvastatin 40 mg p.o. daily, Zithromax 500 mg IV daily, clopidogrel 75 mg p.o. daily, furosemide 80 mg IV daily, subcutaneous heparin which has now been discontinued and converted to an IV heparin drip, hydralazine 10 mg p.o. t.i.d., Imdur 30 mg p.o. daily, Solu-Medrol 60 mg IV q.8 hours, metoprolol tartrate 50 mg p.o. daily, Protonix 40 mg p.o. daily. FAMILY HISTORY: Noncontributory. SOCIAL HISTORY: Former smoker. Patient does drink alcohol occasionally heavily and states that he drank heavily 2 days ago. PHYSICAL EXAMINATION: Vital Signs: Temperature 98.4, pulse 100 sinus tachycardia, blood pressure on admission 177/122, currently 158/110, O2 saturation 93% on room air, there is elevation of the jugular venous pressure. Heart: Regular, slightly tachycardic with an S4 gallop. Chest: Decreased breath sounds bilaterally. Abdomen: Soft, nontender. Extremities: Trace edema bilaterally which appears symmetric. ECG: Shows sinus rhythm at 118 beats per minute with left atrial enlargement, nonspecific ST changes, and a premature ventricular contraction. LABORATORIES: White count 17.3, hematocrit 48.8, platelets 263. INR 1.09. D-dimer 1760. pH 7.5, PCO2 of 26, PO2 of 145, sodium 140, potassium 3.8. BUN 13, creatinine 1.6. Magnesium 2.0. AST 77, ALT 82. Troponin 0.23, 0.46, 0.41. BNP is 1336. CHEST X-RAY: Showed increased vascular congestion bilaterally. IMPRESSION: 1. Acute on chronic diastolic congestive heart failure. 2. Coronary artery disease status post inferior myocardial infarction in 2011 with prior percutaneous coronary intervention. 3. Chronic uncontrolled hypertension. 4. Hypertensive urgency. Now with acute on chronic diastolic CHF possibly precipitated by uncontrolled hypertension but arrhythmia and ischemia need to be ruled out. RECOMMENDATION: 1. IV Lasix. 2. Hold SOFI inhibitor due to elevated creatinine: Will start Imdur and hydralazine combination for afterload reduction and BP control. 3. Daily weights. 4. Echocardiogram. 5. Continue telemetry to rule out arrhythmia. 6. Patient will need an ischemic evaluation when euvolemic. 7. The D-dimer is markedly elevated which is nonspecific. Cannot perform a CTA now as creatinine is elevated and volume overload is present. 8. Will start unfractionated heparin. 9. Check lower extremity duplex. 10. CTA when creatinine approves or V/Q scan when possible/chest x-ray improves to rule out pulmonary embolism. Thank you. Will follow. CARLITA CARRERA M.D. [id number]
--- NOTE | 2018-02-16 10:55 | EKG ---
Test Reason : Blood Pressure : / mmHG Vent. Rate : 118 BPM Atrial Rate : 118 BPM P-R Int : 164 ms QRS Dur : 096 ms QT Int : 324 ms P-R-T Axes : 052 042 038 degrees QTc Int : 454 ms SINUS TACHYCARDIA WITH OCCASIONAL PREMATURE VENTRICULAR COMPLEXES POSSIBLE LEFT ATRIAL ENLARGEMENT NONSPECIFIC ST AND T WAVE ABNORMALITY ABNORMAL ECG WHEN COMPARED WITH ECG OF 22-MAY-2013 09:47, VENT. RATE HAS INCREASED PREMATURE VENTRICULAR COMPLEXES Confirmed by IVONNE SHEPPARD, CASIE ([id number]) on 02/16/2018 10:55:21 AM Referred By: Confirmed By:CASIE CORONADO MD
--- NOTE | 2018-02-16 11:50 | ECHO ---
Name: JENNY SO Exam:Adult Echocardiogram Study Date: 02/16/2018 08:37 AM Age: 57 yrs Reason For Study: FLUID OVERLOAD VS PNA VS PE Height: 67 in Weight: 240 lb BSA: 2.2 m2 MMode/2D Measurements & Calculations IVSd: 0.85 cm Ao root diam: 3.3 cm LVIDd: 5.5 cm LA dimension: 4.4 cm LVIDs: 4.3 cm LVPWd: 0.87 cm EDV(Teich): 144.9 ml TAPSE: 2.9 cm ESV(Teich): 81.3 ml Doppler Measurements & Calculations MV E max martell: 71.6 cm/sec MR max martell: 439.2 cm/sec MV A max martell: 22.7 cm/sec MR max P.3 mmHg MV E/A: 3.2 MV dec time: 0.21 sec TR max martell: 294.5 cm/sec PA V2 max: 89.2 cm/sec TR max P.7 mmHg PA max P.2 mmHg PI end-d martell: 165.6 cm/sec Med Peak E' Martell: 5.9 cm/sec Med E/e': 12.0 Lat Peak E' Martell: 13.2 cm/sec Lat E/e': 5.4 Procedure A complete two-dimensional transthoracic echocardiogram was performed (2D, M-mode, Doppler and color flow Doppler). Left Ventricle The left ventricle is normal in size. Left ventricular systolic function is moderate to severely redu suzie. Ejection Fraction = 30-35%. There is moderate to severe global hypokinesis of the left ventricle. Right Ventricle The right ventricle is normal size. The right ventricular systolic function is normal. RV systolic TD I is 11 cm/s. Atria The left atrium is mildly dilated. Right atrial size is normal. Mitral Valve There is mild mitral annular calcification. There is trace to mild mitral regurgitation. Tricuspid Valve The tricuspid valve is normal in structure and function. Pulmonary artery systolic pressure is at justin st 39 mmHg assuming RA pressure of 3 mmHg. Aortic Valve The aortic valve is normal in structure and function. No aortic regurgitation is present. Pulmonic Valve The pulmonic valve is not well visualized. Mild pulmonic valvular regurgitation. Great Vessels The aortic root is normal size. Pericardium/Pleura There is no pericardial effusion. Interpretation Summary The left ventricle is normal in size. Left ventricular systolic function is moderate to severely reduced. There is moderate to severe global hypokinesis of the left ventricle. Ejection Fraction = 30-35%. The right ventricular systolic function is normal. The right ventricle is normal size. The left atrium is mildly dilated. Right atrial size is normal. There is mild mitral annular calcification. There is trace to mild mitral regurgitation. Pulmonary artery systolic pressure is at least 39 mmHg assuming RA pressure of 3 mmHg Mild pulmonic valvular regurgitation. There is no pericardial effusion. Previous study is not available for comparison Jun Mock MD 02/16/2018 11:49 AM
[2018-02-16] MEDS: hydrALAZINE HCL 10 MG TABLET PO SCH ×2 (13:04→20:59)
[2018-02-16] MEDS: HEPARIN - 25,000 UNIT in SODIUM CHLORIDE 495 ML IV SCH (13:05)
--- NOTE | 2018-02-16 13:28 | EKG ---
Test Reason : Blood Pressure : / mmHG Vent. Rate : 084 BPM Atrial Rate : 084 BPM P-R Int : 178 ms QRS Dur : 104 ms QT Int : 454 ms P-R-T Axes : 060 080 079 degrees QTc Int : 536 ms NORMAL SINUS RHYTHM POSSIBLE LEFT ATRIAL ENLARGEMENT NONSPECIFIC ST ABNORMALITY PROLONGED QT ABNORMAL ECG WHEN COMPARED WITH ECG OF 16-FEB-2018 01:33, PREMATURE VENTRICULAR COMPLEXES ARE NO LONGER PRESENT Confirmed by IVONNE SHEPPARD, CASIE ([id number]) on 02/16/2018 1:27:58 PM Referred By: Confirmed By:CASIE CORONADO MD
[2018-02-16] MEDS ORDERED: POTASSIUM CHLORIDE TABS 20 MEQ TABLET.ER (FP) PO ONE (14:15)
[2018-02-16 14:52] LABS: ANION GAP 10 MMOL/L (8-16); BLOOD UREA NITROGEN 22 mg/dL (7-18); CHLORIDE 102 mmol/L (98-107); CO2 27 mmol/L (21-32); CREATININE 1.5 mg/dL (0.55-1.3); GLUCOSE,RANDOM 150 mg/dL (74-106); MAGNESIUM 2.2 mg/dL (1.8-2.4); PHOSPHOROUS 2.7 mg/dL (2.5-4.9); POTASSIUM 3.8 mmol/L (3.5-5.1); SODIUM 140 mmol/L (136-145)
--- NOTE | 2018-02-16 20:15 | PN ---
Teaching Attending Note Name of Resident: Gregory Jolly ATTENDING PHYSICIAN STATEMENT I saw and evaluated the patient. I reviewed the resident's note and discussed the case with the resident. I agree with the resident's findings and plan as documented. SUBJECTIVE: Patient is a 57yo male presented with severe shortness of breath. OBJECTIVE: Vital Signs Temperature 97.9 F 02/16/18 18:00 Pulse Rate 87 02/16/18 18:00 Respiratory Rate 18 02/16/18 18:00 Blood Pressure 137/87 02/16/18 18:00 O2 Sat by Pulse Oximetry (%) 100 02/16/18 09:00 GENERAL: The patient is awake, alert, and fully oriented, in mild respiratory distress. HEAD: Normal with no signs of trauma. EYES: Sclera anicteric, conjunctiva clear. ENT: Ears normal, moist mucous membranes, JVD+. LUNGS: Breath sounds equal, clear to auscultation bilaterally, no wheezes, no crackles, no accessory muscle use. HEART: RRR, S1S2 positive ABDOMEN: Soft, NT,ND, normoactive bowel sounds, no guarding, no rebound, no hepatosplenomegaly, no masses. EXTREMITIES: 2+ dorsal pedal pulses, warm, no calf tenderness, well-perfused, trace pitting edema b/l. NEUROLOGICAL: Cranial nerves II through XII grossly intact. Normal speech, gait not observed. PSYCH: Normal mood, normal affect. SKIN: Warm, dry, normal turgor CBCD WBC 17.3 K/mm3 (4.0-10.0) H 02/15/18 22:22 RBC 5.29 M/mm3 (4.00-5.60) 02/15/18 22:22 Hgb 16.6 GM/dL (11.7-16.9) 02/15/18 22:22 Hct 48.8 % (35.4-49) D 02/15/18 22:22 MCV 92.3 fl (80-96) 02/15/18 22:22 MCHC 34.0 g/dl (32.0-35.9) 02/15/18 22:22 RDW 14.5 % (11.9-15.9) D 02/15/18 22:22 Plt Count 263 K/MM3 (134-434) 02/15/18 22:22 MPV 8.4 fl (7.5-11.1) 02/15/18 22:22 CMP Sodium 140 mmol/L (136-145) 02/16/18 14:10 Potassium 3.8 mmol/L (3.5-5.1) 02/16/18 14:10 Chloride 102 mmol/L (98-107) 02/16/18 14:10 Carbon Dioxide 27 mmol/L (21-32) 02/16/18 14:10 Anion Gap 10 MMOL/L (8-16) 02/16/18 14:10 BUN 22 mg/dL (7-18) H 02/16/18 14:10 Creatinine 1.5 mg/dL (0.55-1.3) H 02/16/18 14:10 Creat Clearance w eGFR 47.90 (>60) 02/16/18 14:10 Random Glucose 150 mg/dL (74-106) H 02/16/18 14:10 Calcium 9.0 mg/dL (8.5-10.1) 02/16/18 14:10 Total Bilirubin 1.6 mg/dL (0.2-1) H 02/15/18 22:22 AST 77 U/L (15-37) H 02/15/18 22:22 ALT 82 U/L (13-61) H 02/15/18 22:22 Alkaline Phosphatase 102 U/L (45-117) 02/15/18 22:22 Total Protein 7.7 g/dl (6.4-8.2) 02/15/18 22:22 Albumin 4.0 g/dl (3.4-5.0) 02/15/18 22:22 CARDIAC ENZYMES Creatine Kinase 290 IU/L (26-308) 02/15/18 22:22 Troponin I 0.41 ng/ml (0.00-0.05) H 02/16/18 06:20 Current Medications Generic Name Dose Route Start Last Admin Trade Name Allyson PRN Reason Stop Dose Admin Aspirin 325 mg 02/16/18 10:00 02/16/18 09:41 Ecotrin - PO 325 mg DAILY [facility] Administration Atorvastatin Calcium 40 mg 02/16/18 22:00 Lipitor - PO HS [facility] Clopidogrel Bisulfate 75 mg 02/16/18 10:00 02/16/18 09:41 Plavix - PO 75 mg DAILY [facility] Administration Furosemide 40 mg 02/17/18 14:00 Lasix Injection - IVPUSH BID@0600,1400 [facility] Heparin Sodium (Porcine) 1,000 unit 02/16/18 08:35 Heparin - IVPUSH PRN PRN Heparin Heparin Sodium (Porcine) 5,000 unit 02/16/18 08:35 Heparin - IVPUSH PRN PRN Heparin Hydralazine HCl 10 mg 02/16/18 14:00 02/16/18 13:04 Apresoline - PO 10 mg TID [facility] Administration Heparin Sodium (Porcine) 25, 500 mls @ 20 mls/hr 02/16/18 08:45 02/16/18 13: 05 000 unit/ Sodium Chloride IV 1,000 unit/hr TITR [facility] 20 mls/hr Administration Protocol 1,000 UNIT/HR Isosorbide Mononitrate 30 mg 02/16/18 10:00 02/16/18 09:41 Imdur - PO 30 mg DAILY [facility] Administration Methylprednisolone Sodium Succinate 60 mg 02/16/18 10:00 02/16/18 17:48 Solu-Medrol - IVPUSH 60 mg Q8H-IV [facility] Administration Metoprolol Tartrate 50 mg 02/16/18 10:00 02/16/18 09:41 Lopressor - PO 50 mg DAILY [facility] Administration Pantoprazole Sodium 40 mg 02/16/18 10:00 02/16/18 09:41 Protonix - PO 40 mg DAILY [facility] Administration Home Medications Medication Instructions Recorded Amlodipine Besylate 10 mg PO DAILY 02/16/18 Atorvastatin Ca [Lipitor] 40 mg PO HS 02/16/18 Clopidogrel Bisulfate [Clopidogrel] 75 mg PO DAILY 02/16/18 Fluticasone Propionate [Flonase 50 mcg IH DAILY 02/16/18 Allergy Relief] Metoprolol Tartrate [Lopressor] 50 mg PO BID 02/16/18 Omeprazole 40 mg PO DAILY 02/16/18 Echo: shows EFL 30-35%, LV Fxn. mod-severe reduced. D-dimer: 1700 ASSESSMENT AND PLAN: Patient is a 57 yo male with PMH of [place] (cardiac arrest in 2011) s/p stent insertion, CAD, HTN, HLD, admitted for acute respiratory distress that began today in addition to complaint of productive cough for a few months. # Acute Hypoxic Respiratory Failure due to diastolic CHF exacerbation. # Acute over chronic systolic and Diastolic CHF on IV lasix , hold tyler due to elevated Creatinine 1.5 today , on Imdur , hydralazine continue ,wu weights, ischemic eval once euvolemic, on heparin drip , elevated d-dimer , cta when creatinine less than 1.4. le duplex ordered. # hx of CAD s/p inferior [place] 2011, PCI # HTN Urgency-resolved on hydralazine # DAPHNE vs. CKD hold tyler-I for now # Alcohol use stable DVT Prophylaxis -Heparin 5000 units SQ TID Disposition Telemetry
[2018-02-16] MEDS: ATORVASTATIN CA 40 MG TABLET (FP) PO SCH (20:59)
[2018-02-17] MEDS: methylPREDNISolone NA SUCC 125 MG/2 ML VIAL IVPUSH SCH ×2 (02:30→09:42)
[2018-02-17] MEDS: hydrALAZINE HCL 10 MG TABLET PO SCH ×3 (05:31→22:06)
[2018-02-17 06:50] LABS: BASO % 0.2 % (0-2.0); HEMOGLOBIN 14.4 GM/dL (11.7-16.9); LYMPH % 5.8 % (8-40); MCH 30.1 pg (25.7-33.7); MCHC 32.6 g/dl (32.0-35.9); MEAN CELL VOLUME 92.4 fl (80-96); MEAN PLT VOLUME 9.2 fl (7.5-11.1); MONO % 6.9 % (3.8-10.2); NEUT % 87.1 % (42.8-82.8); PLATELET COUNT 198 K/MM3 (134-434); RBC 4.77 M/mm3 (4.00-5.60); RDW 14.5 % (11.9-15.9); WHITE BLOOD COUNT 13.2 K/mm3 (4.0-10.0)
[2018-02-17 07:43] LABS: ALBUMIN 3.6 g/dl (3.4-5.0); ALK PHOS 75 U/L (45-117); ANION GAP 11 MMOL/L (8-16); BILIRUBIN,TOTAL 1.5 mg/dL (0.2-1); BLOOD UREA NITROGEN 32 mg/dL (7-18); CALCIUM 8.4 mg/dL (8.5-10.1); CHLORIDE 107 mmol/L (98-107); CO2 26 mmol/L (21-32); CREATININE 1.4 mg/dL (0.55-1.3); GLUCOSE,RANDOM 149 mg/dL (74-106); MAGNESIUM 2.4 mg/dL (1.8-2.4); PHOSPHOROUS 2.9 mg/dL (2.5-4.9); POTASSIUM 4.1 mmol/L (3.5-5.1); SGOT/AST 53 U/L (15-37); SGPT/ALT 55 U/L (13-61); SODIUM 144 mmol/L (136-145); TOT PROT 6.7 g/dl (6.4-8.2)
--- NOTE | 2018-02-17 08:40 | PN ---
Progress Note, Physician Chief Complaint: significant weight loss and diuresis. Clinically improved, less SOB now able to lay flat as opposed to yesterday TELE: NSR, Rare single PVCs History of Present Illness: Blood pressure remains slightly above target - Current Medication List Current Medications: Active Medications Aspirin (Ecotrin -) 325 mg PO DAILY [facility] Last Admin: 02/16/18 09:41 Dose: 325 mg Atorvastatin Calcium (Lipitor -) 40 mg PO HS [facility] Last Admin: 02/16/18 20:59 Dose: 40 mg Clopidogrel Bisulfate (Plavix -) 75 mg PO DAILY [facility] Last Admin: 02/16/18 09:41 Dose: 75 mg Furosemide (Lasix Injection -) 40 mg IVPUSH BID@0600,1400 [facility] Heparin Sodium (Porcine) (Heparin -) 1,000 unit IVPUSH PRN PRN PRN Reason: Heparin Heparin Sodium (Porcine) (Heparin -) 5,000 unit IVPUSH PRN PRN PRN Reason: Heparin Hydralazine HCl (Apresoline -) 10 mg PO TID [facility] Last Admin: 02/17/18 05:31 Dose: 10 mg Heparin Sodium (Porcine) 25, (000 unit/ Sodium Chloride) 500 mls @ 20 mls/hr IV TITR [facility]; Protocol Last Admin: 02/16/18 13:05 Dose: 1,000 unit/hr, 20 mls/hr Isosorbide Mononitrate (Imdur -) 30 mg PO DAILY [facility] Last Admin: 02/16/18 09:41 Dose: 30 mg Methylprednisolone Sodium Succinate (Solu-Medrol -) 60 mg IVPUSH Q8H-IV [facility] Last Admin: 02/17/18 02:30 Dose: 60 mg Metoprolol Tartrate (Lopressor -) 50 mg PO DAILY [facility] Last Admin: 02/16/18 09:41 Dose: 50 mg Pantoprazole Sodium (Protonix -) 40 mg PO DAILY [facility] Last Admin: 02/16/18 09:41 Dose: 40 mg - Objective Vital Signs: Vital Signs Temperature 97.1 F L 02/17/18 07:35 Pulse Rate 89 02/17/18 07:35 Respiratory Rate 20 02/17/18 07:35 Blood Pressure 156/108 H 02/17/18 07:35 O2 Sat by Pulse Oximetry (%) 97 02/16/18 21:00 Constitutional: Yes: No Distress Cardiovascular: Yes: Regular Rate and Rhythm, JVD Respiratory: Yes: CTA Bilaterally Gastrointestinal: Yes: Soft Edema: No Neurological: Yes: Alert, Oriented ...Motor Strength: WNL Labs: CBC, BMP 02/17/18 05:30 02/17/18 05:30 INR, PTT INR 1.09 (0.83-1.09) 02/15/18 22:24 Laboratory Tests 02/17/18 02/17/18 02/17/18 05:30 05:30 07:30 WBC 13.2 H Hgb 14.4 Plt Count 198 D PTT (Actin FS) 56.2 H Sodium 144 Potassium 4.1 BUN 32 H Creatinine 1.4 H Magnesium 2.4 - ....Imaging EKG: Image Reviewed Assessment/Plan IMP: Acute on chronic Systolic and Diastolic CHF, possibly precipitated by uncontrolled HTN CAD s/p inferior [place] 2011, PCI Elevated D- dimer Elevated TnI: likely due to CHF, CKD; cannot r/o NSTEMI Good clinical response to IV Lasix over first 24 hours with weight loss, increased urine output and clinical improvement REC: 1. IV Lasix BID for another 24-48 hours. Still with JVD. 2. Hold SOFI due to elevated creatinine: started on Imdur/Hydralazine; will titrate as BP still above goal 3. Daily weights 4. Echo w/moderate to severe reduced LV fxn: Cont Nitrate + Hydral and change Metop tartrae to Toprol XL 25mg daily 5. Tele 6. Elevated D dimer, nonspecific. CTA was held as creatinine elevated and volume overload. Continue UFH gtts for + TnI, possible NSTEMI LE venous duplex negative CTA or V/Q scan when possible. 7. Will need ischemic evaluation prior to d/c when euvolemic.
[2018-02-17] MEDS: HEPARIN - 25,000 UNIT in SODIUM CHLORIDE 495 ML IV SCH (09:41)
[2018-02-17] MEDS: ISOSORBIDE MONONITRATE 30 MG TAB.SR.24H (FP) PO SCH (09:42)
[2018-02-17] MEDS: CLOPIDOGREL BISULFATE 75 MG TABLET (FP) PO SCH (09:42)
[2018-02-17] MEDS: ASPIRIN 81 MG CHEWABLE TABLETS PO SCH (09:42)
[2018-02-17] MEDS: PANTOPRAZOLE 40 MG TABLET (FP) PO SCH (09:42)
[2018-02-17] MEDS: metoPROLOL SUCCINATE 25 MG TAB.SR.24H (FP) PO SCH (09:42)
--- NOTE | 2018-02-17 09:42 | PN ---
Teaching Attending Note Name of Resident: Gregory Jolly ATTENDING PHYSICIAN STATEMENT I saw and evaluated the patient. I reviewed the resident's note and discussed the case with the resident. I agree with the resident's findings and plan as documented. SUBJECTIVE: Patient is feeling better, but continues to have shortness of breath. OBJECTIVE: Vital Signs Temperature 98.2 F 02/17/18 09:29 Pulse Rate 89 02/17/18 09:29 Respiratory Rate 19 02/17/18 09:29 Blood Pressure 147/97 02/17/18 09:29 O2 Sat by Pulse Oximetry (%) 99 02/17/18 09:00 GENERAL: The patient is awake, alert, and fully oriented, in mild respiratory distress. HEAD: Normal with no signs of trauma. EYES: Sclera anicteric, conjunctiva clear. ENT: Ears normal, moist mucous membranes, JVD+.improving LUNGS: Breath sounds equal, clear to auscultation bilaterally, no wheezes, no crackles. HEART: regular rate and rhythm, S1, S2 positive , ABDOMEN: Soft, nontender, ND, NT, no guarding, no rebound, no hepatosplenomegaly, no masses. EXTREMITIES: 2+ dorsal pedal pulses, warm, no calf tenderness, well-perfused, trace pitting edema b/l. NEUROLOGICAL: Cranial nerves II through XII grossly intact. Normal speech, gait not observed. PSYCH: Normal mood, normal affect. SKIN: Warm, dry, normal turgor CBCD WBC 13.2 K/mm3 (4.0-10.0) H 02/17/18 05:30 RBC 4.77 M/mm3 (4.00-5.60) 02/17/18 05:30 Hgb 14.4 GM/dL (11.7-16.9) 02/17/18 05:30 Hct 44.0 % (35.4-49) 02/17/18 05:30 MCV 92.4 fl (80-96) 02/17/18 05:30 MCHC 32.6 g/dl (32.0-35.9) 02/17/18 05:30 RDW 14.5 % (11.9-15.9) 02/17/18 05:30 Plt Count 198 K/MM3 (134-434) D 02/17/18 05:30 MPV 9.2 fl (7.5-11.1) 02/17/18 05:30 CMP Sodium 144 mmol/L (136-145) 02/17/18 05:30 Potassium 4.1 mmol/L (3.5-5.1) 02/17/18 05:30 Chloride 107 mmol/L (98-107) 02/17/18 05:30 Carbon Dioxide 26 mmol/L (21-32) 02/17/18 05:30 Anion Gap 11 MMOL/L (8-16) 02/17/18 05:30 BUN 32 mg/dL (7-18) H 02/17/18 05:30 Creatinine 1.4 mg/dL (0.55-1.3) H 02/17/18 05:30 Creat Clearance w eGFR 51.87 (>60) 02/17/18 05:30 Random Glucose 149 mg/dL (74-106) H 02/17/18 05:30 Calcium 8.4 mg/dL (8.5-10.1) L 02/17/18 05:30 Total Bilirubin 1.5 mg/dL (0.2-1) H 02/17/18 05:30 AST 53 U/L (15-37) H 02/17/18 05:30 ALT 55 U/L (13-61) 02/17/18 05:30 Alkaline Phosphatase 75 U/L (45-117) 02/17/18 05:30 Total Protein 6.7 g/dl (6.4-8.2) 02/17/18 05:30 Albumin 3.6 g/dl (3.4-5.0) 02/17/18 05:30 CARDIAC ENZYMES Creatine Kinase 290 IU/L (26-308) 02/15/18 22:22 Troponin I 0.41 ng/ml (0.00-0.05) H 02/16/18 06:20 Current Medications Generic Name Dose Route Start Last Admin Trade Name Freq PRN Reason Stop Dose Admin Aspirin 81 mg 02/17/18 10:00 Asa - PO DAILY [facility] Atorvastatin Calcium 40 mg 02/16/18 22:00 02/16/18 20:59 Lipitor - PO 40 mg HS [facility] Administration Clopidogrel Bisulfate 75 mg 02/16/18 10:00 02/16/18 09:41 Plavix - PO 75 mg DAILY [facility] Administration Furosemide 40 mg 02/17/18 14:00 Lasix Injection - IVPUSH BID@0600,1400 [facility] Heparin Sodium (Porcine) 1,000 unit 02/16/18 08:35 Heparin - IVPUSH PRN PRN Heparin Heparin Sodium (Porcine) 5,000 unit 02/16/18 08:35 Heparin - IVPUSH PRN PRN Heparin Hydralazine HCl 20 mg 02/17/18 14:00 Apresoline - PO TID [facility] Heparin Sodium (Porcine) 25, 500 mls @ 20 mls/hr 02/16/18 08:45 02/16/18 13: 05 000 unit/ Sodium Chloride IV 1,000 unit/hr TITR [facility] 20 mls/hr Administration Protocol 1,000 UNIT/HR Isosorbide Mononitrate 30 mg 02/16/18 10:00 02/16/18 09:41 Imdur - PO 30 mg DAILY [facility] Administration Methylprednisolone Sodium Succinate 60 mg 02/16/18 10:00 02/17/18 02:30 Solu-Medrol - IVPUSH 60 mg Q8H-IV [facility] Administration Metoprolol Succinate 25 mg 02/17/18 10:00 Toprol Xl - PO DAILY [facility] Pantoprazole Sodium 40 mg 02/16/18 10:00 02/16/18 09:41 Protonix - PO 40 mg DAILY [facility] Administration Home Medications Medication Instructions Recorded Amlodipine Besylate 10 mg PO DAILY 02/16/18 Atorvastatin Ca [Lipitor] 40 mg PO HS 02/16/18 Clopidogrel Bisulfate [Clopidogrel] 75 mg PO DAILY 02/16/18 Fluticasone Propionate [Flonase 50 mcg IH DAILY 02/16/18 Allergy Relief] Metoprolol Tartrate [Lopressor] 50 mg PO BID 02/16/18 Omeprazole 40 mg PO DAILY 02/16/18 Echo: shows EFL 30-35%, LV Fxn. mod-severe reduced. D-dimer: 1700 ASSESSMENT AND PLAN: Patient is a 57 yo male with PMH of [place] (cardiac arrest in 2011) s/p stent insertion, CAD, HTN, HLD, admitted for acute respiratory distress that began today in addition to complaint of productive cough for a few months. # Acute Hypoxic Respiratory Failure due to diastolic CHF exacerbation. improving # Acute over chronic systolic and Diastolic CHF on IV lasix , hold tyler-I due to elevated Creatinine 1.5 today , on Imdur , hydralazine continue ,daily weights, ischemic eval once euvolemic, on heparin drip , elevated d-dimer , CTA when creatinine less than 1.4. le duplex ordered. # hx of CAD s/p inferior [place] 2011, PCI # HTN improving on hydralazine # DAPHNE vs. CKD hold tyler-I for now # Alcohol use stable DVT Prophylaxis -Heparin 5000 units SQ TID
--- NOTE | 2018-02-17 12:26 | EKG ---
Test Reason : Blood Pressure : / mmHG Vent. Rate : 092 BPM Atrial Rate : 092 BPM P-R Int : 164 ms QRS Dur : 100 ms QT Int : 396 ms P-R-T Axes : 043 015 089 degrees QTc Int : 489 ms SINUS RHYTHM WITH OCCASIONAL PREMATURE VENTRICULAR COMPLEXES POSSIBLE LEFT ATRIAL ENLARGEMENT INFERIOR INFARCT (CITED ON OR BEFORE 17-FEB-2018) PREMATURE VENTRICULAR COMPLEXES ABNORMAL ECG Confirmed by MD USAMA, GEORGETTE ([id number]) on 02/17/2018 12:26:38 PM Referred By: SIA DEL REAL DR Confirmed By:GEORGETTE FORRESTER MD
[2018-02-17 12:32] LABS: URINE APPEARANCE SLCLOUDY; URINE BILIRUBIN NEGATIVE (<2.0 mg/dL); URINE COLOR YELLOW; URINE GLUCOSE (UA) NEGATIVE (NEGATIVE); URINE KETONE NEGATIVE (NEGATIVE); URINE LEUK ESTERASE NEGATIVE (NEGATIVE); URINE NITRITE NEGATIVE (NEGATIVE); URINE PROTEIN NEGATIVE (NEGATIVE); URINE UROBILINOGEN NEGATIVE mg/dL (0.2-1.0)
--- NOTE | 2018-02-17 12:49 | PN ---
Physical Exam: SUBJECTIVE: Patient seen and examined. No acute events overnight. Pt. states that he feels much better. OBJECTIVE: Vital Signs Period Temp Pulse Resp BP Sys/Shaw Pulse Ox Last 24 Hr 97.1 F-98.6 F 76-95 18-20 137-156/74-108 96-100 GENERAL: The patient is awake, alert, and fully oriented, in mild respiratory distress. HEAD: Normal with no signs of trauma. EYES: Sclera anicteric, conjunctiva clear. No ptosis. ENT: Ears normal, nares patent, moist mucous membranes, JVD+. LUNGS: Breath sounds equal, clear to auscultation bilaterally, no wheezes, no crackles, no accessory muscle use. HEART: Tachycardic, regular rate and rhythm, S1, S2 without murmur ABDOMEN: Soft, nontender, nondistended, normoactive bowel sounds, no guarding, no rebound, no hepatosplenomegaly, no masses. EXTREMITIES: 2+ dorsal pedal pulses, warm, no calf tenderness, well-perfused, trace pitting edema b/l. NEUROLOGICAL: Cranial nerves II through XII grossly intact. Normal speech, gait not observed. PSYCH: Normal mood, normal affect. SKIN: Warm, dry, normal turgor Laboratory Results - last 24 hr 02/16/18 02/17/18 02/17/18 14:10 05:30 05:30 WBC 13.2 H RBC 4.77 Hgb 14.4 Hct 44.0 MCV 92.4 MCH 30.1 MCHC 32.6 RDW 14.5 Plt Count 198 D MPV 9.2 Absolute Neuts (auto) 11.5 H Neutrophils % 87.1 H D Lymphocytes % 5.8 L D Monocytes % 6.9 Eosinophils % 0.0 D Basophils % 0.2 Nucleated RBC % 0 PTT (Actin FS) Sodium 140 144 Potassium 3.8 4.1 Chloride 102 107 Carbon Dioxide 27 26 Anion Gap 10 11 BUN 22 H 32 H Creatinine 1.5 H 1.4 H Creat Clearance w eGFR 47.90 51.87 Random Glucose 150 H 149 H Calcium 9.0 8.4 L Phosphorus 2.7 2.9 Magnesium 2.2 2.4 Total Bilirubin 1.5 H AST 53 H ALT 55 Alkaline Phosphatase 75 Total Protein 6.7 Albumin 3.6 Urine Color Urine Appearance Urine pH Ur Specific Timber Urine Protein Urine Glucose (UA) Urine Ketones Urine Blood Urine Nitrite Urine Bilirubin Urine Urobilinogen Ur Leukocyte Esterase Stool Occult Blood 02/17/18 02/17/18 02/17/18 07:30 11:10 11:50 WBC RBC Hgb Hct MCV MCH MCHC RDW Plt Count MPV Absolute Neuts (auto) Neutrophils % Lymphocytes % Monocytes % Eosinophils % Basophils % Nucleated RBC % PTT (Actin FS) 56.2 H Sodium Potassium Chloride Carbon Dioxide Anion Gap BUN Creatinine Creat Clearance w eGFR Random Glucose Calcium Phosphorus Magnesium Total Bilirubin AST ALT Alkaline Phosphatase Total Protein Albumin Urine Color Yellow Urine Appearance Slcloudy Urine pH 5.0 Ur Specific Timber 1.026 Urine Protein Negative Urine Glucose (UA) Negative Urine Ketones Negative Urine Blood Negative Urine Nitrite Negative Urine Bilirubin Negative Urine Urobilinogen Negative Ur Leukocyte Esterase Negative Stool Occult Blood Negative Active Medications Current Medications Aspirin (Asa -) 81 mg PO DAILY [facility] Last Admin: 02/17/18 09:42 Dose: 81 mg Atorvastatin Calcium (Lipitor -) 40 mg PO HS [facility] Last Admin: 02/16/18 20:59 Dose: 40 mg Clopidogrel Bisulfate (Plavix -) 75 mg PO DAILY [facility] Last Admin: 02/17/18 09:42 Dose: 75 mg Furosemide (Lasix Injection -) 40 mg IVPUSH BID@0600,1400 [facility] Heparin Sodium (Porcine) (Heparin -) 1,000 unit IVPUSH PRN PRN PRN Reason: Heparin Heparin Sodium (Porcine) (Heparin -) 5,000 unit IVPUSH PRN PRN PRN Reason: Heparin Hydralazine HCl (Apresoline -) 20 mg PO TID [facility] Heparin Sodium (Porcine) 25, (000 unit/ Sodium Chloride) 500 mls @ 20 mls/hr IV TITR [facility]; Protocol Last Admin: 02/17/18 09:41 Dose: 1,000 unit/hr, 20 mls/hr Isosorbide Mononitrate (Imdur -) 30 mg PO DAILY [facility] Last Admin: 02/17/18 09:42 Dose: 30 mg Methylprednisolone Sodium Succinate (Solu-Medrol -) 40 mg IVPUSH DAILY [facility] Metoprolol Succinate (Toprol Xl -) 25 mg PO DAILY [facility] Last Admin: 02/17/18 09:42 Dose: 25 mg Pantoprazole Sodium (Protonix -) 40 mg PO DAILY [facility] Last Admin: 02/17/18 09:42 Dose: 40 mg Home Medications Medication Instructions Recorded Amlodipine Besylate 10 mg PO DAILY 02/16/18 Atorvastatin Ca [Lipitor] 40 mg PO HS 02/16/18 Clopidogrel Bisulfate [Clopidogrel] 75 mg PO DAILY 02/16/18 Fluticasone Propionate [Flonase 50 mcg IH DAILY 02/16/18 Allergy Relief] Metoprolol Tartrate [Lopressor] 50 mg PO BID 02/16/18 Omeprazole 40 mg PO DAILY 02/16/18 ASSESSMENT/PLAN: 57 yo male with PMH of [place] (cardiac arrest in 2011) s/p stent insertion, CAD, HTN , HLD, admitted for acute respiratory distress that began today in addition to complaint of productive cough for a few months. Acute Hypoxic Respiratory Failure 2/2 CHF w/ volume overload Acute onset of severe SOB requiring presentation to the ED, pt states chronic DELUCA and productive cough but never this severe or persistent Urine legionella pending D/C Azithromycin given prolonged QTc: 538 BNP noted 1336 CXR noted with mild blunting of b/l angles with possible b/l effusions Decreased Lasix to 40 mg IV BID Is&Os, Daily weights Telemetry Echo: shows EFL 30-35%, LV Fxn. mod-severe reduced. D-dimer: 1700 c/w supplemental O2 as needed, Bipap on standby currently, wouls benefit from night time use as Pt. complains of snoring at night and gasping for air while sleeping. DuoNebs Q4 IH Given SoluMedrol 125 mg IV, c/w by 60 mg IV Q8H Cardiology consult (Dr. Phillips) appreciated. Pt. on Plavix at home, c/w full dose ASA Troponin peaked at 0.46 HTN Urgency-resolved Hold SOFI in light of DAPHNE, will start Imdur and Hydralazine No complaints or signs of end organ damage Nitro drip initiated in ED. BP improved to 136/93 d/c Nitro drip Initial BP: 177/122 DAPHNE vs. CKD Likely CKD, Creatinine chronically elevated 2/2 to volume overload c/w diuresing avoid Nephrotoxic agents Alcohol Abuse-stable CIWA: 0 Endorses 12 beers 3-4 times per week Not currently appearing in acute withdrawals Monitor CIWA and initiate librium/ativan protocol as needed DVT Prophylaxis -Heparin 5000 units SQ TID FEN -Fluids: none -Electrolytes: monitor and replete as needed -Nutrition: Sodium restricted diet Disposition Telemetry Visit type - Emergency Visit Emergency Visit: Yes ED Registration Date: 02/15/18 Care time: The patient presented to the Emergency Department on the above date and was hospitalized for further evaluation of their emergent condition. - New Patient This patient is new to me today: No - Critical Care Critical Care patient: No - Discharge Referral Referred to [facility] Med P.C.: No
--- NOTE | 2018-02-17 13:05 | PN ---
Progress Note (short form) - Note Progress Note: PULMONARY IMP ACUTE HYPOXEMIC RESPIRATORY FAILURE ACUTE ON CHRONIC CHF HYPERTENSIVE URGENCY ASHD S/P GA + TROPONIN ELEVATED D-DIMER NON-SPECIFIC DAPHNE H/O BRONCHITIS LIKELY OSAS PLAN LASIX O2 MONITOR BP TITRATE BP MEDS HEPARIN TREND TROPONIN CTA WHEN RENAL FUNCTION NORMAL SLEEP SCREEN F/U CHEST X-RAYS MONITOR LYTES,RENAL FUNCTION Problem List - Problems (1) Acute hypoxemic respiratory failure Code(s): J96.01 - ACUTE RESPIRATORY FAILURE WITH HYPOXIA (2) DAPHNE (acute kidney injury) Code(s): N17.9 - ACUTE KIDNEY FAILURE, UNSPECIFIED (3) Pulmonary edema Code(s): J81.1 - CHRONIC PULMONARY EDEMA Qualifiers: Chronicity: acute Qualified Code(s): J81.0 - Acute pulmonary edema (4) Troponin I above reference range Code(s): R74.8 - ABNORMAL LEVELS OF OTHER SERUM ENZYMES (5) D-dimer, elevated Code(s): R79.89 - OTHER SPECIFIED ABNORMAL FINDINGS OF BLOOD CHEMISTRY (6) Hypertensive urgency Code(s): I16.0 - HYPERTENSIVE URGENCY (7) ASHD (arteriosclerotic heart disease) Code(s): I25.10 - ATHSCL HEART DISEASE OF [place] CORONARY ARTERY W/O ANG PCTRS (8) Acute on chronic diastolic CHF (congestive heart failure) Code(s): I50.33 - ACUTE ON CHRONIC DIASTOLIC (CONGESTIVE) HEART FAILURE (9) Cardiomyopathy Code(s): I42.9 - CARDIOMYOPATHY, UNSPECIFIED
--- NOTE | 2018-02-17 13:44 | CONS ---
PULMONARY CONSULTATION DATE OF CONSULTATION: 02/17/2018 REFERRING PHYSICIAN: Keya Medina MD The patient is a 57-year-old male with a past medical history of ASHD, history of cardiac arrest in 2011, status post stent, hypertension, hyperlipidemia, bronchitis, history of tobacco use approximately 1-1/2 to 2 packs per day for many years, quit 11 years ago, admitted to [facility] with acute onset of shortness of breath. Patient states for the past couple months or so, he has been noticing increasing shortness of breath, chest congestion, and cough productive of clear sputum. He states that when he walks, he gets short of breath and has to stop before proceeding. He also has frequent insomnia, unable to lie flat, and often awakens at night complaining of shortness of breath, gasping for air. He states on day of admission, he developed acute onset of worsening of shortness of breath while ambulating. Denied any chest pain, nausea, vomiting, or diaphoresis. EMS was called, and the patient was brought to the emergency room. Of note, he is also complaining of left-sided, sharp pain in the xiphoid region which is increasing with inspiration. On admission, he was noted to be severely hypertensive with a blood pressure 177/122. He was started on nitroglycerin drip. He was also started on BiPAP with clinical improvement. He was administered Lasix and transferred to the medical floor for further management. Of note is his BNP was elevated, greater than 1700. He was evaluated by Dr. Phillips for Cardiology. He felt that the patient likely had [id number], diastolic CHF uncontrolled hypertension. He was continued on IV Lasix and echocardiogram performed, revealed [id number] LV systolic dysfunction as well as pulmonary hypertension. He denies any history of DVT or pulmonary emboli in the past. PAST MEDICAL HISTORY: Again includes ASHD status post [place], cardiac arrest, status post stent, hypertension, hyperlipidemia, bronchitis. REVIEW OF SYSTEMS: Positive orthopnea. Positive dyspnea. Positive chest discomfort. Positive cough, clear sputum. No fever. No chills. No abdominal pain. No hemoptysis. No lower extremity edema. CURRENT MEDICATIONS: Include heparin, Solu-Medrol, Toprol, Apresoline, Lipitor, Lasix, Imdur, aspirin, Protonix, and Plavix. PHYSICAL EXAMINATION: General: The patient is an obese male, well awake, alert, currently in no acute distress, sitting up in bed. Vital Signs: He is afebrile. Heart rate is 95, blood pressure 147/97, respiratory rate is 19, O2 saturation is 100% on 2 L. HEENT: Normocephalic, atraumatic. Neck: Supple. Heart: Regular. S1, S2. Chest: Bibasilar crackles. Abdomen: Soft. Bowel sounds are positive. Extremities: No cyanosis or edema. LABORATORY DATA: WBC is 13.2, hemoglobin 14.4, and hematocrit 44.0 with a platelet count of 198,000. D-dimer is 1760. INR is 109. Initial venous blood gas 7.23, pCO2 of 42, a pO2 of , bicarbonate of 17. Followup pH 7.53, pCO2 of 26, a bicarbonate of 22, saturation at 98. That was on BiPAP 100% oxygen, rate 12, and IPAP is at 14. The EPAP is 6. Troponin 0.41. BNP is 1336. BUN 32, creatinine 1.4. Chest x-ray: Increased pulmonary vascular congestion. Echo again reveals [id number] global hypokinesis of the left ventricle with ejection fraction of 30% to 35%. RV function is normal. The pulmonary artery systolic pressure is 39 mm. IMPRESSION: Acute hypoxemic respiratory failure secondary to: 1. [id number]-bvclcde congestive heart failure. 2. Hypertensive urgency. 3. Atherosclerotic heart disease status post myocardial infarction, status post stent. 4. Acute kidney injury. 5. Elevated D-dimer, nonspecific, although cannot completely rule out pulmonary embolism. 6. Positive troponins, rule out possible demand ischemia versus a non-ST myocardial infarction. 7. Likely obstructive sleep apnea. 8. History of bronchitis. PLAN: IV Lasix, supplemental O2, inhaled bronchodilators p.r.n. Obtain followup chest x-rays. Continue anticoagulation as per Cardiology. Trend troponins. Monitor renal function. Strength I's and O's and obtain either CTA of the chest when renal function improves and/or V/Q scan. IDA BERG M.D. LORENZO/[id number]
[2018-02-17] MEDS ORDERED: PT OWN MED DRAWER 7, Y5N ONE (14:20)
[2018-02-17] MEDS: FUROSEMIDE 40 MG/4 ML INJECTABLE VIAL IVPUSH SCH (16:06)
[2018-02-17 20:58] LABS: HEMOGLOBIN 14.7 GM/dL (11.7-16.9); MCHC 35.1 g/dl (32.0-35.9); MEAN CELL VOLUME 91.3 fl (80-96); MEAN PLT VOLUME 9.5 fl (7.5-11.1); PLATELET COUNT 215 K/MM3 (134-434); RDW 14.5 % (11.9-15.9); WHITE BLOOD COUNT 15.7 K/mm3 (4.0-10.0)
[2018-02-17] MEDS: ATORVASTATIN CA 40 MG TABLET (FP) PO SCH (22:05)
[2018-02-18] MEDS: hydrALAZINE HCL 10 MG TABLET PO SCH ×3 (05:50→21:34)
[2018-02-18] MEDS: FUROSEMIDE 40 MG/4 ML INJECTABLE VIAL IVPUSH SCH ×2 (05:50→13:07)
[2018-02-18 07:21] LABS: HEMOGLOBIN 14.9 GM/dL (11.7-16.9); MCH 31.9 pg (25.7-33.7); MCHC 34.6 g/dl (32.0-35.9); MEAN CELL VOLUME 92.2 fl (80-96); MEAN PLT VOLUME 9.5 fl (7.5-11.1); PLATELET COUNT 186 K/MM3 (134-434); RBC 4.66 M/mm3 (4.00-5.60); RDW 14.3 % (11.9-15.9); WHITE BLOOD COUNT 14.9 K/mm3 (4.0-10.0)
[2018-02-18 08:35] LABS: ANION GAP 9 MMOL/L (8-16); BLOOD UREA NITROGEN 35 mg/dL (7-18); CALCIUM 8.5 mg/dL (8.5-10.1); CHLORIDE 107 mmol/L (98-107); CO2 26 mmol/L (21-32); CREATININE 1.3 mg/dL (0.55-1.3); GLUCOSE,RANDOM 113 mg/dL (74-106); MAGNESIUM 2.5 mg/dL (1.8-2.4); PHOSPHOROUS 3.5 mg/dL (2.5-4.9); POTASSIUM 3.7 mmol/L (3.5-5.1); SODIUM 142 mmol/L (136-145)
--- NOTE | 2018-02-18 08:43 | PN ---
Progress Note, Physician Chief Complaint: Clinically much improved. Can lay flat Weight significantly down from admission. Creatinine improved to normal with diuresis. BP remains slightly elevated in AM - Current Medication List Current Medications: Active Medications Aspirin (Asa -) 81 mg PO DAILY [facility] Last Admin: 02/17/18 09:42 Dose: 81 mg Atorvastatin Calcium (Lipitor -) 40 mg PO HS [facility] Last Admin: 02/17/18 22:05 Dose: 40 mg Clopidogrel Bisulfate (Plavix -) 75 mg PO DAILY [facility] Last Admin: 02/17/18 09:42 Dose: 75 mg Furosemide (Lasix Injection -) 40 mg IVPUSH BID@0600,1400 [facility] Last Admin: 02/18/18 05:50 Dose: 40 mg Heparin Sodium (Porcine) (Heparin -) 1,000 unit IVPUSH PRN PRN PRN Reason: Heparin Heparin Sodium (Porcine) (Heparin -) 5,000 unit IVPUSH PRN PRN PRN Reason: Heparin Hydralazine HCl (Apresoline -) 20 mg PO TID [facility] Last Admin: 02/18/18 05:50 Dose: 20 mg Heparin Sodium (Porcine) 25, (000 unit/ Sodium Chloride) 500 mls @ 20 mls/hr IV TITR [facility]; Protocol Last Admin: 02/17/18 09:41 Dose: 1,000 unit/hr, 20 mls/hr Isosorbide Mononitrate (Imdur -) 30 mg PO DAILY [facility] Last Admin: 02/17/18 09:42 Dose: 30 mg Methylprednisolone Sodium Succinate (Solu-Medrol -) 40 mg IVPUSH DAILY [facility] Metoprolol Succinate (Toprol Xl -) 25 mg PO DAILY [facility] Last Admin: 02/17/18 09:42 Dose: 25 mg Pantoprazole Sodium (Protonix -) 40 mg PO DAILY [facility] Last Admin: 02/17/18 09:42 Dose: 40 mg - Objective Vital Signs: Vital Signs Temperature 98.2 F 02/18/18 06:00 Pulse Rate 82 02/18/18 06:00 Respiratory Rate 20 02/18/18 06:00 Blood Pressure 152/106 H 02/18/18 06:00 O2 Sat by Pulse Oximetry (%) 99 02/17/18 21:00 Constitutional: Yes: No Distress, Calm Neck: Yes: Supple Cardiovascular: Yes: Regular Rate and Rhythm Respiratory: Yes: Other (clear, no rales or wheezing.) Gastrointestinal: Yes: Soft, Abdomen, Obese Edema: No Neurological: Yes: Alert, Oriented ...Motor Strength: WNL Labs: CBC, BMP 02/18/18 05:30 02/18/18 05:30 INR, PTT INR 1.09 (0.83-1.09) 02/15/18 22:24 Laboratory Tests 02/16/18 02/18/18 02/18/18 01:20 05:30 05:30 WBC 14.9 H Hgb 14.9 Plt Count 186 PTT (Actin FS) 59.8 H D-Dimer 1760 H Sodium Potassium BUN Creatinine Phosphorus Magnesium 02/18/18 05:30 WBC Hgb Plt Count PTT (Actin FS) D-Dimer Sodium 142 Potassium 3.7 BUN 35 H Creatinine 1.3 Phosphorus 3.5 Magnesium 2.5 H - ....Imaging EKG: Image Reviewed Assessment/Plan IMP: Acute on chronic Systolic and Diastolic CHF, possibly precipitated by uncontrolled HTN CAD s/p inferior MT 2011, PCI Elevated D- dimer Elevated TnI: likely due to CHF, CKD; cannot r/o NSTEMI Good clinical response to IV Lasix over first 48 hours with weight loss, increased urine output and clinical improvement REC: 1. IV Lasix BID today. Plan to decrease to q24 02/19 2. Hold SOFI due to elevated creatinine:continue hydral/Imdur. Now that renal fxn normalized, will try to initiate low dose SOFI in next 24 hours if renal fxn remains stable. 3. Daily weights 4. Echo w/moderate to severe reduced LV fxn: Cont Nitrate + Hydral. Continue Toprol XL 25mg daily 5. Tele 6. Elevated D dimer, nonspecific. Continue UFH gtts for + TnI, possible NSTEMI, r/o PE LE venous duplex negative Now that creatinine normal, will obtain CTA. 7. Will need ischemic evaluation prior to d/c. Plan would be for cath if renal fxn remains stable. Probable transfer to tertiary center afternoon or Friday AM
[2018-02-18] MEDS ORDERED: methylPREDNISolone NA SUCC 40 MG/1 ML VIAL IVPUSH SCH (10:00)
[2018-02-18] MEDS: ASPIRIN 81 MG CHEWABLE TABLETS PO SCH (10:16)
[2018-02-18] MEDS: CLOPIDOGREL BISULFATE 75 MG TABLET (FP) PO SCH (10:16)
[2018-02-18] MEDS: PANTOPRAZOLE 40 MG TABLET (FP) PO SCH (10:16)
[2018-02-18] MEDS: ISOSORBIDE MONONITRATE 30 MG TAB.SR.24H (FP) PO SCH (10:16)
[2018-02-18] MEDS: metoPROLOL SUCCINATE 25 MG TAB.SR.24H (FP) PO SCH (10:16)
[2018-02-18] MEDS: HEPARIN - 25,000 UNIT in SODIUM CHLORIDE 495 ML IV SCH (10:21)
--- NOTE | 2018-02-18 10:51 | PN ---
Physical Exam: SUBJECTIVE: Patient seen and examined. Pt. wants colonoscopy. OBJECTIVE: Vital Signs Period Temp Pulse Resp BP Sys/Shaw Pulse Ox Last 24 Hr 97.3 F-98.2 F 78-95 19-20 132-152/85-106 96-100 GENERAL: The patient is awake, alert, and fully oriented, in mild respiratory distress. HEAD: Normal with no signs of trauma. EYES: Sclera anicteric, conjunctiva clear. No ptosis. ENT: Ears normal, nares patent, moist mucous membranes, No JVD. LUNGS: Breath sounds equal, clear to auscultation bilaterally, no wheezes, no crackles, no accessory muscle use. HEART: Tachycardic, regular rate and rhythm, S1, S2 without murmur ABDOMEN: Soft, nontender, nondistended, normoactive bowel sounds, no guarding, no rebound EXTREMITIES: 2+ dorsal pedal pulses, warm, no calf tenderness, well-perfused, no edema NEUROLOGICAL: Normal speech, gait not observed. PSYCH: Normal mood, normal affect. SKIN: Warm, dry, normal turgor Laboratory Results - last 24 hr 02/17/18 02/17/18 02/17/18 11:10 11:50 20:00 WBC 15.7 H RBC 4.60 Hgb 14.7 Hct 42.0 MCV 91.3 MCH 32.0 MCHC 35.1 RDW 14.5 Plt Count 215 MPV 9.5 PTT (Actin FS) Sodium Potassium Chloride Carbon Dioxide Anion Gap BUN Creatinine Creat Clearance w eGFR Random Glucose Calcium Phosphorus Magnesium Urine Color Yellow Urine Appearance Slcloudy Urine pH 5.0 Ur Specific [place] 1.026 Urine Protein Negative Urine Glucose (UA) Negative Urine Ketones Negative Urine Blood Negative Urine Nitrite Negative Urine Bilirubin Negative Urine Urobilinogen Negative Ur Leukocyte Esterase Negative Stool Occult Blood Negative 02/18/18 02/18/18 02/18/18 05:30 05:30 05:30 WBC 14.9 H RBC 4.66 Hgb 14.9 Hct 43.0 MCV 92.2 MCH 31.9 MCHC 34.6 RDW 14.3 Plt Count 186 MPV 9.5 PTT (Actin FS) 59.8 H Sodium 142 Potassium 3.7 Chloride 107 Carbon Dioxide 26 Anion Gap 9 BUN 35 H Creatinine 1.3 Creat Clearance w eGFR 56.50 Random Glucose 113 H Calcium 8.5 Phosphorus 3.5 Magnesium 2.5 H Urine Color Urine Appearance Urine pH Ur Specific [place] Urine Protein Urine Glucose (UA) Urine Ketones Urine Blood Urine Nitrite Urine Bilirubin Urine Urobilinogen Ur Leukocyte Esterase Stool Occult Blood Active Medications Current Medications Aspirin (Asa -) 81 mg PO DAILY [facility] Last Admin: 02/18/18 10:16 Dose: 81 mg Atorvastatin Calcium (Lipitor -) 40 mg PO HS [facility] Last Admin: 02/17/18 22:05 Dose: 40 mg Clopidogrel Bisulfate (Plavix -) 75 mg PO DAILY [facility] Last Admin: 02/18/18 10:16 Dose: 75 mg Furosemide (Lasix Injection -) 40 mg IVPUSH BID@0600,1400 [facility] Last Admin: 02/18/18 05:50 Dose: 40 mg Heparin Sodium (Porcine) (Heparin -) 1,000 unit IVPUSH PRN PRN PRN Reason: Heparin Heparin Sodium (Porcine) (Heparin -) 5,000 unit IVPUSH PRN PRN PRN Reason: Heparin Hydralazine HCl (Apresoline -) 20 mg PO TID [facility] Last Admin: 02/18/18 05:50 Dose: 20 mg Heparin Sodium (Porcine) 25, (000 unit/ Sodium Chloride) 500 mls @ 20 mls/hr IV TITR [facility]; Protocol Last Admin: 02/18/18 10:21 Dose: 1,000 unit/hr, 20 mls/hr Isosorbide Mononitrate (Imdur -) 30 mg PO DAILY [facility] Last Admin: 02/18/18 10:16 Dose: 30 mg Methylprednisolone Sodium Succinate (Solu-Medrol -) 40 mg IVPUSH DAILY [facility] Last Admin: 02/18/18 10:17 Dose: 40 mg Metoprolol Succinate (Toprol Xl -) 25 mg PO DAILY [facility] Last Admin: 02/18/18 10:16 Dose: 25 mg Pantoprazole Sodium (Protonix -) 40 mg PO DAILY [facility] Last Admin: 02/18/18 10:16 Dose: 40 mg Home Medications Medication Instructions Recorded Amlodipine Besylate 10 mg PO DAILY 02/16/18 Atorvastatin Ca [Lipitor] 40 mg PO HS 02/16/18 Clopidogrel Bisulfate [Clopidogrel] 75 mg PO DAILY 02/16/18 Fluticasone Propionate [Flonase 50 mcg IH DAILY 02/16/18 Allergy Relief] Metoprolol Tartrate [Lopressor] 50 mg PO BID 02/16/18 Omeprazole 40 mg PO DAILY 02/16/18 ASSESSMENT/PLAN: 57 yo male with PMH of DC (cardiac arrest in 2011) s/p stent insertion, CAD, HTN , HLD, admitted for acute respiratory distress that began today in addition to complaint of productive cough for a few months. Acute Hypoxic Respiratory Failure 2/2 CHF w/ volume overload Acute onset of severe SOB requiring presentation to the ED, pt states chronic DELUCA and productive cough but never this severe or persistent CTA: Neg. for PE or aortic dissection, minimal costophrenic scarring, hiatal hernia present Urine legionella Negative D/C Azithromycin given prolonged QTc: 538; Rpt. EKG: QTc: 489; occasional PVCs, old inferior wall infarct, possible LA enlargement. CXR noted with mild blunting of b/l angles with possible b/l effusions Decreased Lasix to 40 mg IV BID; Will decrease Lasix tomorrow after assessing volume status. Initial weight: 108.51kg; Today: 100.516kg; Good Urine output. Telemetry Echo: shows EFL 30-35%, LV Fxn. mod-severe reduced. D-dimer: 1700 c/w supplemental O2 as needed, Bipap on standby currently, would benefit from night time use as Pt. complains of snoring at night and gasping for air while sleeping. Sleep screen present in chart, f/u outpatient LAURA work up. DuoNebs Q4H PRN D/C- steroids per appreciated Pulmonology consult( Dr. Mayers) Cardiology consult (Dr. Phillips) appreciated--> will be transferred out for PCI tomorrow. Pt. on Plavix at home, c/w full dose ASA Troponin peaked at 0.46 BNP noted 1336 HTN Urgency-resolved Hold SOFI in light of DAPHNE, will start Imdur and Hydralazine No complaints or signs of end organ damage Nitro drip initiated in ED. BP improved to 136/93 d/c Nitro drip Initial BP: 177/122 DAPHNE vs. CKD Likely CKD, Creatinine chronically elevated 2/2 to volume overload c/w diuresing avoid Nephrotoxic agents Alcohol Abuse-stable CIWA: 0 Endorses 12 beers 3-4 times per week Not currently appearing in acute withdrawals Monitor CIWA and initiate librium/ativan protocol as needed DVT Prophylaxis -Heparin Drip- c/w drip as this is therapeutic for NSTEMI as well as the ruled out PE. FEN -Fluids: none -Electrolytes: monitor and replete as needed -Nutrition: Sodium restricted diet Disposition Transfer to [facility] Visit type - Emergency Visit Emergency Visit: Yes ED Registration Date: 02/15/18 Care time: The patient presented to the Emergency Department on the above date and was hospitalized for further evaluation of their emergent condition. - New Patient This patient is new to me today: No - Critical Care Critical Care patient: No - Discharge Referral Referred to [facility] Med P.C.: No
--- NOTE | 2018-02-18 12:24 | PN ---
Progress Note, Physician History of Present Illness: PULMONARY ALERT,SITTING UP IN BED,SOB IMPROVING. SLEEP SCREEN AHI 38.0 C/W SEVERE SLEEP APNEA - Current Medication List Current Medications: Active Medications Aspirin (Asa -) 81 mg PO DAILY [facility] Last Admin: 02/18/18 10:16 Dose: 81 mg Atorvastatin Calcium (Lipitor -) 40 mg PO HS [facility] Last Admin: 02/17/18 22:05 Dose: 40 mg Clopidogrel Bisulfate (Plavix -) 75 mg PO DAILY [facility] Last Admin: 02/18/18 10:16 Dose: 75 mg Furosemide (Lasix Injection -) 40 mg IVPUSH BID@0600,1400 [facility] Last Admin: 02/18/18 05:50 Dose: 40 mg Heparin Sodium (Porcine) (Heparin -) 1,000 unit IVPUSH PRN PRN PRN Reason: Heparin Heparin Sodium (Porcine) (Heparin -) 5,000 unit IVPUSH PRN PRN PRN Reason: Heparin Hydralazine HCl (Apresoline -) 20 mg PO TID [facility] Last Admin: 02/18/18 05:50 Dose: 20 mg Heparin Sodium (Porcine) 25, (000 unit/ Sodium Chloride) 500 mls @ 20 mls/hr IV TITR [facility]; Protocol Last Admin: 02/18/18 10:21 Dose: 1,000 unit/hr, 20 mls/hr Isosorbide Mononitrate (Imdur -) 30 mg PO DAILY [facility] Last Admin: 02/18/18 10:16 Dose: 30 mg Methylprednisolone Sodium Succinate (Solu-Medrol -) 40 mg IVPUSH DAILY [facility] Last Admin: 02/18/18 10:17 Dose: 40 mg Metoprolol Succinate (Toprol Xl -) 25 mg PO DAILY [facility] Last Admin: 02/18/18 10:16 Dose: 25 mg Pantoprazole Sodium (Protonix -) 40 mg PO DAILY [facility] Last Admin: 02/18/18 10:16 Dose: 40 mg - Objective Vital Signs: Vital Signs Temperature 98.0 F 02/18/18 09:57 Pulse Rate 84 02/18/18 09:57 Respiratory Rate 20 02/18/18 09:57 Blood Pressure 148/100 02/18/18 09:57 O2 Sat by Pulse Oximetry (%) 97 02/18/18 09:00 Constitutional: Yes: Well Nourished, Calm Eyes: Yes: WNL HENT: Yes: WNL Neck: Yes: WNL Cardiovascular: Yes: Regular Rate and Rhythm, S1, S2 Respiratory: Yes: Diminished Gastrointestinal: Yes: Normal Bowel Sounds, Soft Extremities: Yes: WNL Edema: No Labs: CBC, BMP 02/18/18 05:30 02/18/18 05:30 INR, PTT INR 1.09 (0.83-1.09) 02/15/18 22:24 - ....Imaging Cat Scan: Report Reviewed, Image Reviewed (CHEST CTA -PE,-EFFUSIONS) Problem List - Problems (1) Acute hypoxemic respiratory failure Code(s): J96.01 - ACUTE RESPIRATORY FAILURE WITH HYPOXIA (2) DAPHNE (acute kidney injury) Code(s): N17.9 - ACUTE KIDNEY FAILURE, UNSPECIFIED (3) Pulmonary edema Code(s): J81.1 - CHRONIC PULMONARY EDEMA Qualifiers: Chronicity: acute Qualified Code(s): J81.0 - Acute pulmonary edema (4) Troponin I above reference range Code(s): R74.8 - ABNORMAL LEVELS OF OTHER SERUM ENZYMES (5) D-dimer, elevated Code(s): R79.89 - OTHER SPECIFIED ABNORMAL FINDINGS OF BLOOD CHEMISTRY (6) Hypertensive urgency Code(s): I16.0 - HYPERTENSIVE URGENCY (7) ASHD (arteriosclerotic heart disease) Code(s): I25.10 - ATHSCL HEART DISEASE OF [place] CORONARY ARTERY W/O ANG PCTRS (8) Acute on chronic diastolic CHF (congestive heart failure) Code(s): I50.33 - ACUTE ON CHRONIC DIASTOLIC (CONGESTIVE) HEART FAILURE (9) Cardiomyopathy Code(s): I42.9 - CARDIOMYOPATHY, UNSPECIFIED Assessment/Plan PULMONARY IMP ACUTE HYPOXEMIC RESPIRATORY FAILURE IMPROVING ACUTE ON CHRONIC CHF HYPERTENSIVE URGENCY ASHD S/P FL + TROPONIN ELEVATED D-DIMER NON-SPECIFIC DAPHNE H/O BRONCHITIS OSAS AHI 38.0 ON SLEEP SCREEN PLAN LASIX O2 MONITOR BP TITRATE BP MEDS HEPARIN SLEEP TUDIES OUTPATIENT F/U CHEST X-RAYS MONITOR LYTES,RENAL FUNCTION D/C STEROIDS Problem List - Problems (1) Acute hypoxemic respiratory failure Code(s): J96.01 - ACUTE RESPIRATORY FAILURE WITH HYPOXIA (2) DAPHNE (acute kidney injury) Code(s): N17.9 - ACUTE KIDNEY FAILURE, UNSPECIFIED (3) Pulmonary edema Code(s): J81.1 - CHRONIC PULMONARY EDEMA Qualifiers: Chronicity: acute Qualified Code(s): J81.0 - Acute pulmonary edema (4) Troponin I above reference range Code(s): R74.8 - ABNORMAL LEVELS OF OTHER SERUM ENZYMES (5) D-dimer, elevated Code(s): R79.89 - OTHER SPECIFIED ABNORMAL FINDINGS OF BLOOD CHEMISTRY (6) Hypertensive urgency Code(s): I16.0 - HYPERTENSIVE URGENCY (7) ASHD (arteriosclerotic heart disease) Code(s): I25.10 - ATHSCL HEART DISEASE OF [place] CORONARY ARTERY W/O ANG PCTRS (8) Acute on chronic diastolic CHF (congestive heart failure) Code(s): I50.33 - ACUTE ON CHRONIC DIASTOLIC (CONGESTIVE) HEART FAILURE (9) Cardiomyopathy Code(s): I42.9 - CARDIOMYOPATHY, UNSPECIFIED
[2018-02-18] MEDS ORDERED: PT OWN MED DRAWER 7, Y5N ONE ×2 (17:11→17:20)
--- NOTE | 2018-02-18 18:59 | PN ---
Teaching Attending Note Name of Resident: Gregory Jolly ATTENDING PHYSICIAN STATEMENT I saw and evaluated the patient. I reviewed the resident's note and discussed the case with the resident. I agree with the resident's findings and plan as documented. SUBJECTIVE: No fever or chills. No SOB , no CP. OBJECTIVE: NAD CV: RRR. Lungs: CTAB Ext : no edema or erythema ASSESSMENT AND PLAN: 57 y/o man with h/o HTN, CHF , CAD s/p AL , HLP , and other medical problems who was admitted fro SOB . 1- Acute hypoxic resp failure due to acute systolic and diastolic CHF : - lasix IV. daily tomorrow - cont HZN/imdur and BB - no PE on CT. 2- NSTEMI: cont heparin gtt for this . plan for cath in 1-2 days monitor cr very closely as he received dye today 3- DAPHNE : cr improved . monitor closely for PHUC 4- HTN : cont meds dispo : transfer for cath as per card
[2018-02-18] MEDS: ATORVASTATIN CA 40 MG TABLET (FP) PO SCH (21:34)
[2018-02-19 02:02] VITALS: BP 158/99; PULSE 80; TEMP 98.1
[2018-02-19] MEDS ORDERED: FUROSEMIDE 40 MG/4 ML INJECTABLE VIAL IVPUSH SCH (10:00)
--- NOTE | 2018-02-19 18:51 | DS ---
Physical Exam: SUBJECTIVE: Patient seen and examined. No acute events overnight. Pt. states that he wants a colonoscopy. Pt. denies any complaints at this time. Pt. did not need supplemental oxygen overnight. OBJECTIVE: Vital Signs Period Temp Pulse Resp BP Sys/Shaw Pulse Ox Last 24 Hr 98.1 F-98.2 F 68-80 18-18 156-158/94-99 98 PHYSICAL EXAM GENERAL: The patient is awake, alert, and fully oriented, in no acute distress. HEAD: Normal with no signs of trauma. EYES: PERRL, extraocular movements intact, sclera anicteric, conjunctiva clear. ENT: Ears normal, nares patent, oropharynx clear without exudates, moist mucous membranes. NECK: Trachea midline, full range of motion, supple. LUNGS: Breath sounds equal, clear to auscultation bilaterally, no wheezes, no crackles, no accessory muscle use. HEART: Regular rate and rhythm, S1, S2 without murmur, rub or gallop. ABDOMEN: Soft, nontender, nondistended, normoactive bowel sounds, no guarding, no rebound, no hepatosplenomegaly, no masses. EXTREMITIES: 2+ pulses, warm, well-perfused, no edema. NEUROLOGICAL: Cranial nerves II through XII grossly intact. Normal speech, gait not observed. PSYCH: Normal mood, normal affect. SKIN: Warm, dry, normal turgor, no rashes or lesions noted. LABS Laboratory Last Values WBC 14.9 K/mm3 (4.0-10.0) H 02/18/18 05:30 RBC 4.66 M/mm3 (4.00-5.60) 02/18/18 05:30 Hgb 14.9 GM/dL (11.7-16.9) 02/18/18 05:30 Hct 43.0 % (35.4-49) 02/18/18 05:30 MCV 92.2 fl (80-96) 02/18/18 05:30 MCH 31.9 pg (25.7-33.7) 02/18/18 05:30 MCHC 34.6 g/dl (32.0-35.9) 02/18/18 05:30 RDW 14.3 % (11.9-15.9) 02/18/18 05:30 Plt Count 186 K/MM3 (134-434) 02/18/18 05:30 MPV 9.5 fl (7.5-11.1) 02/18/18 05:30 Absolute Neuts (auto) 11.5 K/mm3 (1.5-8.0) H 02/17/18 05:30 Neutrophils % 87.1 % (42.8-82.8) H D 02/17/18 05:30 Lymphocytes % 5.8 % (8-40) L D 02/17/18 05:30 Monocytes % 6.9 % (3.8-10.2) 02/17/18 05:30 Eosinophils % 0.0 % (0-4.5) D 02/17/18 05:30 Basophils % 0.2 % (0-2.0) 02/17/18 05:30 Nucleated RBC % 0 % (0-0) 02/17/18 05:30 PT with INR 12.90 SEC (9.7-13.0) 02/15/18 22:24 INR 1.09 (0.83-1.09) 02/15/18 22:24 PTT (Actin FS) 59.8 SECONDS (25.2-36.5) H 02/18/18 05:30 D-Dimer 1760 ng/ml (0-500) H 02/16/18 01:20 Anticoagulation Therapy No Result Required. 02/16/18 00:46 Puncture Site Right radial 02/16/18 00:46 ABG pH 7.53 (7.35-7.45) H 02/16/18 00:46 ABG pCO2 at Pt Temp 26.4 mmHg (35-45) L D 02/16/18 00:46 ABG pO2 at Pt Temp 145.0 mmHg (80-100) H D 02/16/18 00:46 ABG HCO3 22.1 meq/L (22-26) 02/16/18 00:46 ABG O2 Sat (Measured) 98.9 % (90-98.9) 02/16/18 00:46 ABG O2 Content 20.3 % vol (15-22) 02/16/18 00:46 ABG Base Excess 1.1 meq/l (-2-2) 02/16/18 00:46 Aleksey Test Positive 02/16/18 00:46 VBG pH 7.49 (7.32-7.42) H D 02/16/18 01:36 POC VBG pCO2 30.4 mmHg (38-52) L D 02/16/18 01:36 POC VBG pO2 115.0 mmHg (28-48) H D 02/16/18 01:36 Mixed VBG HCO3 22.8 meq/L (19-25) 02/16/18 01:36 O2 Delivery Device Bipap 02/16/18 00:46 Oxygen Flow Rate 100 02/16/18 00:46 Vent Mode No Result Required. 02/16/18 00:46 Vent Rate 12 02/16/18 00:46 Mechanical Rate No Result Required. 02/16/18 00:46 Pressure Support Vent 14/6 02/16/18 00:46 Sodium 142 mmol/L (136-145) 02/18/18 05:30 Potassium 3.7 mmol/L (3.5-5.1) 02/18/18 05:30 Chloride 107 mmol/L (98-107) 02/18/18 05:30 Carbon Dioxide 26 mmol/L (21-32) 02/18/18 05:30 Anion Gap 9 MMOL/L (8-16) 02/18/18 05:30 BUN 35 mg/dL (7-18) H 02/18/18 05:30 Creatinine 1.3 mg/dL (0.55-1.3) 02/18/18 05:30 Creat Clearance w eGFR 56.50 (>60) 02/18/18 05:30 Random Glucose 113 mg/dL (74-106) H 02/18/18 05:30 Calcium 8.5 mg/dL (8.5-10.1) 02/18/18 05:30 Phosphorus 3.5 mg/dL (2.5-4.9) 02/18/18 05:30 Magnesium 2.5 mg/dL (1.8-2.4) H 02/18/18 05:30 Total Bilirubin 1.5 mg/dL (0.2-1) H 02/17/18 05:30 AST 53 U/L (15-37) H 02/17/18 05:30 ALT 55 U/L (13-61) 02/17/18 05:30 Alkaline Phosphatase 75 U/L (45-117) 02/17/18 05:30 Creatine Kinase 290 IU/L (26-308) 02/15/18 22:22 Creatine Kinase Index 1.3 % (0.0-5.0) 02/15/18 22:22 CK-MB (CK-2) 3.9 ng/mL (0.5-3.6) H 02/15/18 22:22 Troponin I 0.41 ng/ml (0.00-0.05) H 02/16/18 06:20 B-Natriuretic Peptide 1336.3 pg/ml (5-125) H 02/15/18 22:22 Total Protein 6.7 g/dl (6.4-8.2) 02/17/18 05:30 Albumin 3.6 g/dl (3.4-5.0) 02/17/18 05:30 Urine Color Yellow 02/17/18 11:50 Urine Appearance Slcloudy 02/17/18 11:50 Urine pH 5.0 (5.0-8.0) 02/17/18 11:50 Ur Specific [place] 1.026 (1.010-1.035) 02/17/18 11:50 Urine Protein Negative (NEGATIVE) 02/17/18 11:50 Urine Glucose (UA) Negative (NEGATIVE) 02/17/18 11:50 Urine Ketones Negative (NEGATIVE) 02/17/18 11:50 Urine Blood Negative (NEGATIVE) 02/17/18 11:50 Urine Nitrite Negative (NEGATIVE) 02/17/18 11:50 Urine Bilirubin Negative (<2.0 mg/dL) 02/17/18 11:50 Urine Urobilinogen Negative mg/dL (0.2-1.0) 02/17/18 11:50 Ur Leukocyte Esterase Negative (NEGATIVE) 02/17/18 11:50 Stool Occult Blood Negative (NEGATIVE) 02/17/18 11:10 Blood Type AB POSITIVE 02/15/18 22:34 Antibody Screen Negative 02/15/18 22:34 HOSPITAL COURSE: Date of Admission:02/15/18 Date of Discharge: 02/19/18 Pt. admitted for acute respiratory failure 2/2 acute CHF exacerbation. Pt. monitored on telemetry. Pt. given BiPAP to maintain SpO2 above 90%. Pt. given loading dose of Solumedrol and continued with a day of steroids under the appreciated guidance of Pulmonology consult. Pt. underwent sleep screen and found to have an AHI of 38. Pt. was referred for followup as detailed below. Initial BP was elevated so Pt. was started on anti-hypertensives to good effect. CXR showed possible b/l pleural effusions Pt. started on Lasix. Echo showed EF of 30-35% with moderate to severely reduced LV function. Pt. had elevated D-dimer however d/t DAPHNE Pt. was not a good candidate for CTA. Pt, was also suspicious for NSTEMI as EKG showed non-specific ST-T wave abnomalities and a Troponin peak of 0.46 therefore Pt. was started on Heparin drip. Pt. medically optimized for PCI at [facility]. Hospital course discussed and agreed upon with Pt. and medical staff. Minutes to complete discharge: 34 Discharge Summary Reason For Visit: ACUTE KIDNEY INJURY/HYPERBILIRUBINEMIA/PULMONARY Condition: Guarded - Instructions Diet, Activity, Other Instructions: Sleep Studies out patient, f/u Dr. Mayers within 1 week. Referrals: Lilibeth Solis MD [Primary Care Provider] - Disposition: TRANSFER ACUTE CARE/OTHER HOSP - Home Medications Comprehensive Discharge Medication List: Ambulatory Orders Amlodipine Besylate 10 mg PO DAILY 02/16/18 Atorvastatin Ca [Lipitor] 40 mg PO HS 02/16/18 Clopidogrel Bisulfate [Clopidogrel] 75 mg PO DAILY 02/16/18 Fluticasone Propionate [Flonase Allergy Relief] 50 mcg IH DAILY 02/16/18 Metoprolol Tartrate [Lopressor] 50 mg PO BID 02/16/18 Omeprazole 40 mg PO DAILY 02/16/18 This patient is new to me today: No Emergency Visit: Yes ED Registration Date: 02/15/18 Care time: The patient presented to the Emergency Department on the above date and was hospitalized for further evaluation of their emergent condition. Critical Care patient: No - Discharge Referral Referred to [facility] Med [facility] No
== END 2018-02-19 02:02 | disposition short-term general hospital (02) | DRG 133 ==
LOC: JER 22:16 → JERBED 23:32 → J4W 02-16 04:53
PROVIDERS: ADMIT Internal Medicine; ATTEND Internal Medicine
DX: J96.01 Acute respiratory failure with hypoxia (principal); I25.10 Atherosclerotic heart disease of native coronary artery without angina pectoris; I10 Essential (primary) hypertension; I25.2 Old myocardial infarction; N17.9 Acute kidney failure, unspecified; I16.0 Hypertensive urgency; F10.10 Alcohol abuse, uncomplicated; D72.829 Elevated white blood cell count, unspecified; E66.9 Obesity, unspecified; Z68.34 Body mass index [BMI] 34.0-34.9, adult; R79.89 Other specified abnormal findings of blood chemistry; J81.0 Acute pulmonary edema; I21.4 Non-ST elevation (NSTEMI) myocardial infarction; I42.9 Cardiomyopathy, unspecified; G47.33 Obstructive sleep apnea (adult) (pediatric); I13.0 Hypertensive heart and chronic kidney disease with heart failure and stage 1 through stage 4 chronic kidney disease, or unspecified chronic kidney disease; N18.9 Chronic kidney disease, unspecified; I50.43 Acute on chronic combined systolic (congestive) and diastolic (congestive) heart failure; J40 Bronchitis, not specified as acute or chronic; Z95.5 Presence of coronary angioplasty implant and graft; Z87.891 Personal history of nicotine dependence
CPT/HCPCS: 36415; 36600; 71045-TC-FY; 71275-TC; 76705-TC; 80048; 80053; 81003; 82272; 82550; 82553; 82803; 83735; 83880; 84100; 84484; 85025; 85027; 85379; 85610; 85730; 86850; 86900; 86901; 93005; 93010; 93306-TC; 93970-TC; 94761; 99284-25; J1644